=== PATIENT | male | born 1965 | race Caucasian/White ===

== ENCOUNTER 2016-04-09 18:17 | Emergency (ER) | payer OTHER ==
--- NOTE | 2016-04-09 20:53 | DIAGNOSTIC IMAGING REPORT ---
PROCEDURE: CTA THORAX WITH CONTRAST INDICATION: Shortness of breath with bilateral lower extremity swelling, initial encounter TECHNIQUE: 88 ml of Isovue 370 was injected intravenously and axial images were obtained of the entire thorax with 3D sagittal and coronal MIP reconstructions. COMPARISON: Chest x-ray 04/09/2016 FINDINGS: Limited opacification of the pulmonary arteries but no evidence of pulmonary emboli. Faint ground-glass appearance of the lungs. Minor right basilar atelectasis. No adenopathy or effusion. Normal thoracic aorta without dissection or aneurysm. Borderline cardiomegaly. Mild to moderate degenerative changes of the spine. Visualized upper abdomen is unremarkable. IMPRESSION: 1. No evidence of central pulmonary emboli but cannot completely exclude tiny peripheral emboli 2. Ground-glass appearance of the lungs suspicious for CHF. Correlate with BMP 3. Results discussed with Dr. Morgan
--- NOTE | 2016-04-09 20:54 | DIAGNOSTIC IMAGING REPORT ---
PROCEDURE: XR CHEST 1 VIEW INDICATION: SHORTNESS OF BREATH, initial encounter TECHNIQUE: Portable AP view 07:33 p.m. COMPARISON: None. FINDINGS: Lungs are clear. Borderline cardiomegaly. Mediastinum and pulmonary vessels are normal. Thorax is normal. IMPRESSION: 1. Borderline cardiomegaly
--- NOTE | 2016-04-09 23:47 | ED CLINICAL REPORT ---
Clinical Report - Physicians/Mid Levels [facility] [address] [place] [address] 04/09/2016 18:20 Patient: YVES MEEK Time Seen: 18:32. Arrived- By private vehicle. HISTORY OF PRESENT ILLNESS Chief Complaint: CHEST PAIN. SHORTNESS OF BREATH. It is described as "pain" and it is described as located in the left chest area. (L leg redness 2/4 following on the job injury [facility] visit - 04/04 Rx Keflex Rx for celluliitis LLL At 0300 today SOB, lungs felt full, L chest pain lasting several hours.). Is still present. It was gradual in onset. Onset during rest. At its maximum, severity described as 6 / 10. When seen in the E.D., it was almost gone and severity described as 3 / 10. No nausea. He has had difficulty breathing. Similar symptoms previously: None. REVIEW OF SYSTEMS No fever, fever, sore throat, abdominal pain or diarrhea. No nausea or difficulty with urination. He has had mild chills, pedal edema, calf pain and pain involving the left leg and chest pain. He has had a cough, difficulty breathing and skin rash located on the left leg. He has had a moderate cough productive of sputum. All systems otherwise negative, except as recorded above. PAST HISTORY Dr Lanette TOSCANO Ops: Cervical fusion, L wrist ORIF, L ear, Hosp: None Illness:. Risk factors for heart disease- smoking and hypertension; for DVT/pulmonary embolism- obesity. Denies the following risk factors for heart disease - diabetes, elevated cholesterol and family history of heart disease. Denies the following risk factors for DVT/PE - history of DVT and pulmonary embolism, recent surgery, recent [place] and congestive heart failure. SOCIAL HISTORY Current every day heavy tobacco smoker- 1 pack per day. ADDITIONAL NOTES The nursing notes have been reviewed. PHYSICAL EXAM Appearance: Alert. Patient in mild distress. Eyes: Eyes normal inspection. ENT: Pharynx normal. Neck: No JVD. CVS: Normal heart rate and rhythm. Heart sounds normal. Respiratory: No respiratory distress. Prolonged expirations. Decreased air movement. Moderate bilateral wheezes posteriorly. No retractions or accessory muscle use. Abdomen: Obese. Skin: Skin warm and dry. Normal skin color. No rash. Extremities: (LLE tenderness redness, minimal swelling). Neuro: Oriented X 3. LABS, X-RAYS, AND EKG EKG: No acute process. No acute ischemia. Rate: 85. Poor R wave progression. Normal ST and T waves. Chest X-ray: Medium-sized infiltrate in the left lower lobe. Laboratory Tests: CBC w Diff: (CARISSA: 04/09/2016 18:35) ( MsgRcvd 04/09/2016 19:03) Final results Test Result Flag Units (Reference) WHITE BLOOD COUNT 11.8 H K/uL (4.5-11.5) RED BLOOD COUNT 4.31 L M/uL (4.50-5.90) HEMOGLOBIN 13.9 gm/dL (13.5-17.5) HEMATOCRIT 41.7 % (41.0-53.0) MEAN CELL VOLUME 97 fL (80-100) MEAN CORPUSCULAR HGB 32 pg (26-34) MEAN CORPUSCULAR HGB CONC 33 g/dL (31-37) RED CELL DISTRIBUTION WIDTH 13.9 % (11.6-14.8) PLATELET COUNT 289 K/uL (150-400) NEUTROPHIL % 71.9 % (50-75) LYMPH % 16.0 L % (25-40) MONO % 6.6 % (3-14) EOSINOPHIL % 5.5 H % (0-4) BASOPHIL % 0 % (0-2) [id number]: (CARISSA: 04/09/2016 18:35) ( [facility] Final results Test Result Flag Units (Reference) D-DIMER QUANTITATIVE 0.66 H ug/mLFEU (0.27-0.52) The primary value of this quantitative assay relates toits negative predictive value (i.e. exclusion) of pulmonaryembolism/deep vein thrombosis/DIC.Elevated levels of d-dimer may also occur with:, age, cancer, inflammation, liver disease,post-op, infection, hematoma, coronary disease, peripheralarteriopathy, bleeding disorders and thrombolytic treatment.Results should be correlated with other clinical andradiological data.Testing Methodology: Latex Immunoassay Lactate, Serum: (CARISSA: 04/09/2016 20:00) ( MsgRcvd 04/09/2016 20:37) Final results Test Result Flag Units (Reference) LACTIC ACID 0.7 mmol/L (0.4-2.0) [id number]: (CARISSA: 04/09/2016 18:35) ( MsgRcvd 04/09/2016 20:21) Final results Test Result Flag Units (Reference) PROCALCITONIN <0.5 ng/mL (0-0.5) PCT Concentration: Interpretation : Risk/option for action PCT <=0.5 ng/mL : Systemic : Low risk forinfection(sepsis): progression to severeis not likely. : systemic infection.Local bacterial : CAUTION-PCT levelsinfection is : below 0.5 ng/mL do notpossible. : exclude an infection,because localizedinfections (withoutsystemic signs) may beassociated with suchlow levels. If PCT ismeasured very earlyafter a bacterialchallenge (usually <6hours), these valuesmay still be low. Inthis case PCT shouldbe re-assessed 6-24hours later. PCT >0.5 and : Systemic infection: Moderate risk for<= 2 ng/mL : (sepsis) is : progression to severepossible, but : systemic infection.other conditions : The patient should beare known to : closely monitoredelevate PCT. : both clinically andby re-assessing PCTwithin 6-24 hours. PCT > 2 ng/mL : Systemic infection: High risk for(sepsis) is likely: progression to severeunless other : systemic infection.causes are known. : PCT >= 10 ng/mL : Important systemic: High likelihood ofinflammatory : severe sepsis orresponse, almost : septic shock.exclusively due to:severe bacterial :sepsis or septic :shock. : BNP: (CARISSA: 04/09/2016 18:35) ( [facility] 04/09/2016 19:27) Final results Test Result Flag Units (Reference) B-TYPE NATRIURETIC PEPTIDE 15.7 pg/ml (5-100) CHEM 13 PANEL: (CARISSA: 04/09/2016 18:35) ( [facility] 04/09/2016 19:16) Final results Test Result Flag Units (Reference) GLUCOSE 134 H mg/dL (70-110) BUN 20 H mg/dL (7-18) CREATININE 1.0 mg/dL (0.6-1.3) Estimated GFR >60 mL/min Estimated GFR- >60 mL/min Note: Persistent reduction over 3 months in eGFR<60 mL/min/1.73 m2 defines CKD. Patients with eGFR values>=60 mL/min/1.73 m2 may also have CKD if evidence ofpersistent proteinuria. Additional information may be foundat www.kidney.org. SODIUM 142 mmol/L (136-145) POTASSIUM 4.3 mmol/L (3.5-5.1) CHLORIDE 105 mmol/L (98-107) CARBON DIOXIDE 33 H mmol/L (21-32) CALCIUM 8.2 L mg/dL (8.5-10.1) TOTAL PROTEIN 7.4 g/dL (6.4-8.2) ALBUMIN 3.2 L g/dL (3.3-5.0) BILIRUBIN, TOTAL 0.2 mg/dL (0.0-1.0) ALKALINE PHOSPHATASE 92 U/L (46-116) AST (SGOT) 17 U/L (15-37) ALT (SGPT) 29 U/L (12-78) CPK 132 U/L (24-260) MAGNESIUM 2.1 mg/dL (1.8-2.4) TROPONIN I <0.05 ng/mL (0.00-1.5) TROPONIN REFERENCE RANGE:<0.1 NEGATIVE0.1-1.5 INDETERMINANT>1.5 POSITIVE ABG: (CARISSA: 04/09/2016 20:45) ( MsgRcvd 04/09/2016 21:34) Final results Test Result Flag Units (Reference) FIO2 0.28 L % (20-101) ABG MODE OF DELIVERY NC MODIFIED PARKER TEST POSITIVE? NO LITERS PER MIN. 2 L/MIN (0-20) ARTERIAL BLOOD GAS SITE RR ARTERIAL BLOOD GAS pH 7.29 L (7.35-7.45) ABG PCO2 73.8 *H mmHg (35-45) ABG PO2 58.1 L mmHg (80.0-100.0) ABG BASE EXCESS 7.0 H mmol/L (-6.0--6.0) ABG HCO3 35.1 *H mmol/L (20.0-26.0) ABG TCO2 37.4 *H mmol/L (24.0-30.0) ABG [id number] 61.4 H mmHg (7.0-14.0) *NOTE: Normal rangeis based on aFIO2 of 21% ABG SAT O2 90.0 L % (95.1-100.0) ABG TOTAL HEMOGLOBIN 14.3 g/dL (14.0-18.0) ABG O2 HEMOGLOBIN 83.5 *L % (95.0-100.0) ABG CARBOXYHEMOGLOBIN 7.1 H % (0.5-1.5) ABG METHEMOGLOBIN 0.1 L % (0.4-1.5) ABG RHEMOGLOBIN 9.3 % COMMENTS 2LNC Rapid Influenza Screen: (CARISSA: 04/09/2016 23:30) ( MsgRcvd 04/09/2016 23:58) Final results SPECIMEN DESCRIPTION: ... Test Result Flag Units (Reference) RAPID INFLUENZA SCREEN DATE: 04/09/16 INFLUENZA A: NEGATIVE SCREEN FOR INFLUENZA A INFLUENZA B: NEGATIVE SCREEN FOR INFLUENZA B . PROGRESS AND PROCEDURES Course of Care: 20:45 04/09/16. Sleeping and snorring 21:44 04/09/16. Respiratory acidosis on ABG. No ICU beds here. No PE, Pneumonia, or CHF. Bedside hand off to Dr Rushing because of change of shift/R MD Eddie 22:59 04/09/16. Called Prov for ICU bed, none available. 23:45 04/09/16. Spoke w/ Dr. Ta at [facility], requested testing for flu and accepted pt. Disposition: Benefits, risks and alternatives to transfer explained to patient and spouse. Transferred to [facility]. CLINICAL IMPRESSION Acute exacerbation of COPD. Hypoxia. HYPOXEMIA WITH HYPOVENTILATION BRONCHOSPASM LLL CELLULITIS. (Electronically signed by Daniel Rushing Dr. 04/10/2016 0:37)
--- NOTE | 2016-04-09 23:47 | ED ORDER SUMMARY ---
..... Patient: YVES MEEK OrderSheet [facility] VisitID: [id number] [address] [place] [address] 51y, M Registration Date/Time: 04/09/2016 ORDER SHEET Weight: 129.2 kg (stated) Allergies: Clarithromycin GENERAL ORDERS: Chest 1V Urgent (18:51 04/09/2016 Lexis LOCKHART) (Ack 19:06 Corina) (19:37 RFay) Supervisor [employer] (Continuous) (18:52 04/09/2016 Lexis LOCKHART) (18:59 ASchmuck) Cardiac Panel Stat (18:52 04/09/2016 Lexis LOCKHART) (Ack 19:06 Corina) (19:25 ASchmuck) BNP Urgent (18:52 04/09/2016 Lexis LOCKHART) (Ack 19:06 Corina) (19:25 ASchmuck) D-Dimer Urgent (18:52 04/09/2016 Lexis LOCKHART) (Ack 19:06 Corina) (19:25 ASchmuck) Oxygen (2 L/min) (NC) (18:52 04/09/2016 Lexis LOCKHART) (18:59 ASchmuck) Pulse oximeter (18:52 04/09/2016 Lexis LOCKHART) (18:59 ASchmuck) EKG - ER Stat (18:52 04/09/2016 Lexis LOCKHART) (18:59 ASchmuck) Peak Flow (pre & post) Stat (18:58 04/09/2016 Lexis LOCKHART) (Ack 19:06 Corina) (19:25 ASchmuck) Chest 1V Urgent (19:34 04/09/2016 Lexis LOCKHART) (Cancelled: Duplicate Order19:39 ALawrence ER Tech1) Blood Culture (Yes) (KEFLEX) Urgent (19:51 04/09/2016 Lexis LOCKHART) (Ack 19:54 ALawrence ER Tech1) (20:07 ALawrence ER Tech1) CTA Thorax w Cont (No) (SEE CHART) Urgent (19:52 04/09/2016 Lexis LOCKHART) (Ack 19:54 ALawrence ER Tech1) (20:52 ASchmuck) Lactate, Serum Urgent (19:52 04/09/2016 Lexis LOCKHART) (Ack 19:54 ALawrence ER Tech1) (20:07 ALawrence ER Tech1) PCT (Procalcitonin) Urgent (19:52 04/09/2016 Lexis LOCKHART) (Ack 19:54 ALawrence ER Tech1) (20:07 ALawrence ER Tech1) ABG (G) Urgent (20:45 04/09/2016 Lexis LOCKHART) (Ack 20:52 ALawrence ER Tech1) (22:20 ALawrence ER Tech1) BNP Urgent (20:53 04/09/2016 Lexis LOCKHART) (20:58 Lexis LOCKHART) (Cancelled: Duplicate Order20:58 Lexis LOCKHART) Rapid Influenza Screen (Nasal Pharyngeal) (...) Urgent (23:34 04/09/2016 Sue Sue) (23:54 EHassan R.N.) MEDICATION ORDERS: Aspirin PO 325 mg (NOW) (18:53 04/09/2016 Lexis LOCKHART) (Ack 19:01 ASchmuck) (19:25 ASchmuck) Lovenox Subcut 120 mg (NOW) (18:53 04/09/2016 Lexis LOCKHART) (Ack 19:01 ASchm) (19:25 ASchmuck) Albuterol Neb Tx 5 mg (NOW, HHN) (18:57 04/09/2016 Lexis LOCKHART) (20:51 ASchmuck) DuoNeb Neb Tx 1 unit dose (NOW) (00:37 04/10/2016 Sue Sue) (0:57 EHassan R.N.) IV FLUIDS: IV Saline Lock (18:52 04/09/2016 Lexis LOCKHART) (18:59 ASchmuck) Solu-MEDROL IV 125 mg (NOW) (18:57 04/09/2016 Lexis LOCKHART) (Ack 19:01 ASchm) (19:25 ASchmuck) Levofloxacin IV 500 mg/100mL (NOW) (23:48 04/09/2016 Sue Sue) (0:03 EHassan R.N.) ORDER SHEET NOTES: [Electronically signed by Daniel Rushing Dr. (00:37 04/10/2016)] [Electronically signed by Rebecca Hernandez R.N. (00:57 04/10/2016)] [Electronically locked/signed by Rebecca Hernandez R.N. (00:57 04/10/2016)]
--- NOTE | 2016-04-09 23:47 | ED ORDER SUMMARY ---
..... 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) (18:52 04/09/2016 Lexis LOCKHART) (18:59 ASchmuck) Cardiac Panel Stat (18:52 04/09/2016 Lexis LOCKHART) (Ack 19:06 Corina) (19:25 ASchmuck) BNP Urgent (18:52 04/09/2016 Lexis LOCKHART) (Ack 19:06 Corina) (19:25 ASchmuck) D-Dimer Urgent (18:52 04/09/2016 Lexis LOCKHART) (Ack 19:06 Corina) (19:25 ASchmuck) Oxygen (2 L/min) (NC) (18:52 04/09/2016 Lexis LOCKHART) (18:59 ASchmuck) Pulse oximeter (18:52 04/09/2016 Lexis LOCKHART) (18:59 ASchmuck) EKG - ER Stat (18:52 04/09/2016 Lexis LOCKHART) (18:59 ASchmuck) Peak Flow (pre & post) Stat (18:58 04/09/2016 Lexis LOCKHART) (Ack 19:06 Corina) (19:25 ASchmuck) Chest 1V Urgent (19:34 04/09/2016 Lexis LOCKHART) (Cancelled: Duplicate Order19:39 ALawrence ER Tech1) Blood Culture (Yes) (KEFLEX) Urgent (19:51 04/09/2016 Lexis LOCKHART) (Ack 19:54 ALawrence ER Tech1) (20:07 ALawrence ER Tech1) CTA Thorax w Cont (No) (SEE CHART) Urgent (19:52 04/09/2016 Lexis LOCKHART) (Ack 19:54 ALawrence ER Tech1) (20:52 ASchmuck) Lactate, Serum Urgent (19:52 04/09/2016 Lexis LOCKHART) (Ack 19:54 ALawrence ER Tech1) (20:07 ALawrence ER Tech1) PCT (Procalcitonin) Urgent (19:52 04/09/2016 Lexis LOCKHART) (Ack 19:54 ALawrence ER Tech1) (20:07 ALawrence ER Tech1) ABG (G) Urgent (20:45 04/09/2016 Lexis LOCKHART) (Ack 20:52 ALawrence ER Tech1) (22:20 ALawrence ER Tech1) BNP Urgent (20:53 04/09/2016 Lexis LOCKHART) (20:58 Lexis LOCKHART) (Cancelled: Duplicate Order20:58 Lexis LOCKHART) Rapid Influenza Screen (Nasal Pharyngeal) (...) Urgent (23:34 04/09/2016 Sue Sue) (23:54 EHassan R.N.) MEDICATION ORDERS: Aspirin PO 325 mg (NOW) (18:53 04/09/2016 Lexis LOCKHART) (Ack 19:01 ASchmuck) (19:25 ASchmuck) Lovenox Subcut 120 mg (NOW) (18:53 04/09/2016 Lexis LOCKHART) (Ack 19:01 ASchm) (19:25 ASchmuck) Albuterol Neb Tx 5 mg (NOW, HHN) (18:57 04/09/2016 Lexis LOCKHART) (20:51 ASchmuck) DuoNeb Neb Tx 1 unit dose (NOW) (00:37 04/10/2016 Sue Sue) (0:57 EHassan R.N.) IV FLUIDS: IV Saline Lock (18:52 04/09/2016 Lexis LOCKHART) (18:59 ASchmuck) Solu-MEDROL IV 125 mg (NOW) (18:57 04/09/2016 Lexis LOCKHART) (Ack 19:01 ASchm) (19:25 ASchmuck) Levofloxacin IV 500 mg/100mL (NOW) (23:48 04/09/2016 Sue Sue) (0:03 EHassan R.N.) ORDER SHEET NOTES: [Electronically signed by Daniel Rushing Dr. (00:37 04/10/2016)] [Electronically signed by Rebecca Hernandez R.N. (00:57 04/10/2016)] [Electronically locked/signed by Rebecca Hernandez R.N. (00:57 04/10/2016)]
--- NOTE | 2016-04-09 23:47 | ED NURSING NOTES ---
Clinical Report - Nurses [facility] [place] [address] 04/09/2016 18:20 Patient: YVES MEEK TRIAGE Triage time 18:20. Acuity: LEVEL 3. Chief Complaint: SHORTNESS OF BREATH and COUGH and CHEST PAIN. Alert. No acute distress. SEPSIS SCREEN: Sepsis Screen: negative. Negative (no infection suspected/documented). ALEENA COMA SCORE: [place] Coma Scale: 15- eyes open spontaneously (4); best verbal response- oriented x 4 (5); best motor response- obeys commands (6). --18:33 Batsheva Buchanan R.N. 18:25 04/09/16. BP: 139/62. HR: 85. RR: 20. O2 saturation: 83%. Temp: 98.1 F. Pain level now 10. --18:33 Batsheva Buchanan R.N. Weight: 129.2 kg stated. Height/Length: 66 inches Per Patient. BMI: 46. --18:27 Batsheva Buchanan R.N. Medications Cephalexin Oral 500 mg, 4x a day. --18:31 Batsheva Buchanan R.N. Naproxen Oral 500 mg, 2x a day. --18:31 Batsheva Buchanan R.N. Decongestant Oral. --18:31 Batsheva Buchanan R.N. Allergies Clarithromycin. (Gi bleed) --18:31 Batsheva Buchanan R.N. History Arrived by EMS. Historian: patient. Accompanied by family. Primary physician (Vance Gama). This started last night. Onset. (0300 last night). Treatment [employer]: None. (Pt seen at [facility] today and was advised to go to the ED via EMS). See EMS report. Pre-hospital 12-lead EKG. PAST MEDICAL HX: Immunizations: status is unknown. SOCIAL HX: Heavy tobacco smoker (cigarette)- 1 pack per day. No alcohol use or drug use. No infectious disease exposure. ABUSE ASSESSMENT: Abuse assessment: The patient was asked "Do you feel safe in your home?" and "Has anyone hurt you or threatened to hurt you?". No report of abuse. SELF HARM ASSESSMENT: A self harm assessment was performed. The patient answered "no" to the question "Do you have thoughts of harming or killing yourself?" and "Have you recently had thoughts about harming or killing others?". NUTRITIONAL RISK ASSESSMENT: The nutritional risk assessment revealed no deficiencies. FUNCTIONAL ASSESSMENT: Functional assessment: no impairments noted. LEARNING NEEDS ASSESSMENT: The learning needs assessment revealed no barriers. --18:33 Batsheva Buchanan R.N. PROBLEMS: Cellulitis. GI Bleeding. --18:33 Batsheva Buchanan R.N. ADDITIONAL SURGERIES: Back Surgery. Knee Surgery. Neck Surgery. Wrist. --18:33 Batsheva Buchanan R.N. Interventions ID band on patient. Transported via stretcher. --18:33 Batsheva Buchanan R.N. 18:30 04/09/2016 Site #1 started prior to arrival by EMS via IV in the right hand with an 20g angiocath. --18:30 Batsheva Buchanan R.N. PHYSICAL ASSESSMENT To room via stretcher. GENERAL / NEURO / PSYCH: Alert. Appears in no acute distress. HEENT: Mucous membranes are pink. RESPIRATORY: No respiratory distress. Respirations not labored. CVS: Capillary refill less than 2 seconds. SKIN: Skin is warm and dry. --18:34 Batsheva Buchanan R.N. NURSING PROGRESS NOTES 18:20. Oxygen administered by nasal cannula at 3 liters. screed person, pulse oximeter and NIBP monitor placed on patient; combination machine tool setter- Lead II; monitor alarms on. Patient gowned. Head of bed elevated. Two patient identifiers checked. Call light placed in reach. Side rails up x 2. Bed placed in lowest position. Brakes of bed on. Patient ready for evaluation- chart flagged. --18:35 Batsheva Buchanan R.N. EKG time: (1819). EKG was ordered, performed by a tech and shown to the ED physician. --18:35 Batsheva Buchanan R.N. Patient ID band checked for patient name, birthdate and medical record number: patient confirmed. Blood samples drawn from the right hand peripheral IV site by nurse per protocol ; labeled in presence of the patient and sent to lab: rainbow set. Initial blood discarded and additional blood sent to lab. Line flushed with 10 mL normal saline post blood draw (accessed by Liborio Tovar RN). --18:36 Batsheva Buchanan R.N. EKG time: (1830). EKG was performed by a tech and shown to the ED physician. --18:47 Andrew Villagomez Care transferred and report received (from Batsheva Celis,RN). --19:07 Mirta Patel ( Respiratory therapist at bedside.). --19:08 Danae Atnunez 19:20 04/09/2016 Aspirin PO Tablets 325 mg given. Allergies verified and confirmed 5 rights. --19:25 Mirta Patel 19:04/09/2016 SOLU-MEDROL (MethylPREDNISolone Sodium Succ) IVP 125 mg given over 2 minute(s) via site #1. Allergies verified and confirmed 5 rights. IV patency established. IV site checked: no pain, redness, or swelling. IV flushed thoroughly pre- and post-medication administration. IVP given by RN. --19: Mirta Patel 04/09/2016 Lovenox (Enoxaparin Sodium) Subcutaneous 120 mg given. Given in the right upper arm. Allergies verified and confirmed 5 rights. --19:25 Mirta Patel :04/09/16. BP: 147/84. HR: 86. RR: 24. O2 saturation: 86% on nasal cannula at 4 liters/minute. Pain level now: 09/05. --19:26 Mirta Patel :04/09/2016 Albuterol Neb TX Nebulizer 1 unit dose given. Given by the respiratory therapist. --20:51 Mirta Patel 04/09/16. ( Pt assisted to BR by factory focus technician). --19:26 Mirta Patel 19:04/09/16. BP: 142/75. HR: 86. RR: 22. O2 saturation: 89% on nasal cannula at 4 liters/minute. Pain level now: 09/05. --19:47 Mirta Patel 20:03 04/09/2016 Site #2 started via IV in the left antecubital space with an 18g angiocath, with aseptic technique and good blood return; one attempt. Blood drawn: cultures x1. Labeled in the presence of the patient and sent to the lab. Saline lock flushed with 10 mL saline. --20:13 Mirta Patel 20:14 04/09/16. Patient transported to radiology by stretcher with tech. (20:14 Apr 09 2016). ( Pillows provided to patient for comfort.). --20:14 Mirta Patel 21:14 04/09/16. ( Patient desaturates while sleeping to mid-60's or 70's. reports that patient stops breathing while sleeping at home. ERMD notified.). --21:14 Mirta Patel 21:14 04/09/16. BP: 152/77. HR: 86. RR: 18. O2 saturation: 86% on nasal cannula at 4 liters/minute. --21:15 Mirta Patel 22:10 04/09/16. ( Pt ambulated to with .). --22:10 Mirta Patel 23:29 04/09/16. BP: 146/89. HR: 85. RR: 22. O2 saturation: 91%. O2 started via Venti mask at 4 liters/minute. Temp: 98 F (oral). Pain level now: 0/10. --23:38 Rebecca Hernandez, R.N. Cardiac rhythm: normal sinus rhythm. Oxygen administered by venturi mask. Monitoring of patient in place. Reassurance given. Reassessment after oxygen administered. He is calm and has had no adverse reaction. Overall patient status is the same- he states feels the same. ( Pt stating wanting to "go home, due to not wanting to transfer to [facility]" Dr. Rushing at the bedside, education done on the importance of staying at hospital.). RESPIRATORY: Decreased breath sounds posteriorly and diffusely over both lungs; decreased breath sounds in the right lung base posteriorly and mid-lung posteriorly; decreased breath sounds in the left lung base posteriorly and mid-lung posteriorly and diffusely over both lungs. CVS: Normal sinus rhythm noted. SKIN: Skin is warm. Skin color within normal limits. Patient identifiers checked. Call light placed in reach. Side rails up x 2. Bed placed in lowest position. Brakes of bed on. Brakes of chair on. Patient waiting for admit bed. --23:38 Rebecca Hernandez R.N. 00:03 04/10/2016 Started 500 mg of Levofloxacin IVPB in bag #1 100 mL; at 100 mL/hr over 1 hour(s) via site #1 via IV pump. Allergies verified and confirmed 5 rights. IV patency established. IV site checked: no pain, redness, or swelling. IV flushed thoroughly pre- and post-medication administration. --00:03 Rebecca Hernandez R.N. ( LLE noted to be red/edema +1, palpable pulses +1, IV ABX infusing). --00:10 Rebecca Hernandez R.N. Care transferred and report given (RAMESH Jernigan at [facility]). --00:56 Rebecca Hernandez R.N. 00:42 04/10/2016 Levofloxacin IVPB Continued: upon transfer at the rate of 100 mL/hr. 50 mL remaining bag #1. IV patency established. IV site checked: no pain, redness, or swelling. IV flushed thoroughly. --00:57 Rebecca Hernandez R.N. 00:47 04/10/2016 Duoneb (Ipratropium-Albuterol) Neb TX Nebulizer 1 unit dose given. Given by the nurse. Allergies verified and confirmed 5 rights. --00:57 Rebecca Hernandez R.N. DISPOSITION / DISCHARGE 00:26 04/10/2016 Site #1 reassessed; patent, infusing well and no signs of infection. Line flushed with saline. Converted to saline lock. --00:51 Rebecca Hernandez R.N. 00:47 04/10/2016 Site #2 reassessed; patent and infusing well. Line flushed with saline. Flushed with 10 mL saline. --00:52 Rebecca Hernandez R.N. 00:51 04/10/2016 Site #1. (Pt before leaving states "IV feels sore"). --00:51 Rebecca Hernandez R.N. Cardiac rhythm: normal sinus rhythm. Departure time: 0012 AM. Condition at departure: improved and stable. The goals identified in the patient's plan of care were met. Transferred to [facility]. Summary of care provided to transport team, patient and transfer facility. Transported via stretcher by transport team with monitor, IV and O2. Report was given to a nurse. Report included patient's care, treatment, medications, reviewed medication reconcilliation, and condition (including any recent changes or anticipated changes). All questions were answered. Report was acknowledged and care was transferred. (RAMESH Rojas). ( Pt transferred to [facility] via EMS/ ALS team, report given to RAMESH Nayak- (transport specialist), VSS, pt given a neb due to complaining of SOB and wheezing, O2 sats at 92 RA). FALL RISK ASSESSMENT: Fall risk assessment completed. No fall risk identified. --00:55 Rebecca Hernandez R.N. 00:40 04/10/16. BP: 150/92 (regular adult cuff) taken on the right arm, manually, while sitting. HR: 88. RR: 20. O2 saturation: 90% on room air. Temp: 98.2 F (oral). Pain level now: 0/10. --00:55 Rebecca Hernandez R.N. Locked/Released at 04/10/2016 0:57 by Rebecca Hernandez R.N.
--- NOTE | 2016-04-09 23:47 | ED CLINICAL REPORT ---
Clinical Report - Physicians/Mid Levels [facility] [address] [place] [address] 04/09/2016 18:20 Patient: YVES MEEK Time Seen: 18:32. Arrived- By private vehicle. HISTORY OF PRESENT ILLNESS Chief Complaint: CHEST PAIN. SHORTNESS OF BREATH. It is described as "pain" and it is described as located in the left chest area. (L leg redness 2/4 following on the job injury [facility] visit - 04/04 Rx Keflex Rx for celluliitis LLL At 0300 today SOB, lungs felt full, L chest pain lasting several hours.). Is still present. It was gradual in onset. Onset during rest. At its maximum, severity described as 6 / 10. When seen in the E.D., it was almost gone and severity described as 3 / 10. No nausea. He has had difficulty breathing. Similar symptoms previously: None. REVIEW OF SYSTEMS No fever, fever, sore throat, abdominal pain or diarrhea. No nausea or difficulty with urination. He has had mild chills, pedal edema, calf pain and pain involving the left leg and chest pain. He has had a cough, difficulty breathing and skin rash located on the left leg. He has had a moderate cough productive of sputum. All systems otherwise negative, except as recorded above. PAST HISTORY Dr Lanette TOSCANO Ops: Cervical fusion, L wrist ORIF, L ear, Hosp: None Illness:. Risk factors for heart disease- smoking and hypertension; for DVT/pulmonary embolism- obesity. Denies the following risk factors for heart disease - diabetes, elevated cholesterol and family history of heart disease. Denies the following risk factors for DVT/PE - history of DVT and pulmonary embolism, recent surgery, recent PR and congestive heart failure. SOCIAL HISTORY Current every day heavy tobacco smoker- 1 pack per day. ADDITIONAL NOTES The nursing notes have been reviewed. PHYSICAL EXAM Appearance: Alert. Patient in mild distress. Eyes: Eyes normal inspection. ENT: Pharynx normal. Neck: No JVD. CVS: Normal heart rate and rhythm. Heart sounds normal. Respiratory: No respiratory distress. Prolonged expirations. Decreased air movement. Moderate bilateral wheezes posteriorly. No retractions or accessory muscle use. Abdomen: Obese. Skin: Skin warm and dry. Normal skin color. No rash. Extremities: (LLE tenderness redness, minimal swelling). Neuro: Oriented X 3. LABS, X-RAYS, AND EKG EKG: No acute process. No acute ischemia. Rate: 85. Poor R wave progression. Normal ST and T waves. Chest X-ray: Medium-sized infiltrate in the left lower lobe. Laboratory Tests: CBC w Diff: (CARISSA: 04/09/2016 18:35) ( MsgRcvd 04/09/2016 19:03) Final results Test Result Flag Units (Reference) WHITE BLOOD COUNT 11.8 H K/uL (4.5-11.5) RED BLOOD COUNT 4.31 L M/uL (4.50-5.90) HEMOGLOBIN 13.9 gm/dL (13.5-17.5) HEMATOCRIT 41.7 % (41.0-53.0) MEAN CELL VOLUME 97 fL (80-100) MEAN CORPUSCULAR HGB 32 pg (26-34) MEAN CORPUSCULAR HGB CONC 33 g/dL (31-37) RED CELL DISTRIBUTION WIDTH 13.9 % (11.6-14.8) PLATELET COUNT 289 K/uL (150-400) NEUTROPHIL % 71.9 % (50-75) LYMPH % 16.0 L % (25-40) MONO % 6.6 % (3-14) EOSINOPHIL % 5.5 H % (0-4) BASOPHIL % 0 % (0-2) [id number]: (CARISSA: 04/09/2016 18:35) ( [facility] 04/09/2016 19:11) Final results Test Result Flag Units (Reference) D-DIMER QUANTITATIVE 0.66 H ug/mLFEU (0.27-0.52) The primary value of this quantitative assay relates toits negative predictive value (i.e. exclusion) of pulmonaryembolism/deep vein thrombosis/DIC.Elevated levels of d-dimer may also occur with:, age, cancer, inflammation, liver disease,post-op, infection, hematoma, coronary disease, peripheralarteriopathy, bleeding disorders and thrombolytic treatment.Results should be correlated with other clinical andradiological data.Testing Methodology: Latex Immunoassay Lactate, Serum: (CARISSA: 04/09/2016 20:00) ( MsgRcvd 04/09/2016 20:37) Final results Test Result Flag Units (Reference) LACTIC ACID 0.7 mmol/L (0.4-2.0) [id number]: (CARISSA: 04/09/2016 18:35) ( MsgRcvd 04/09/2016 20:21) Final results Test Result Flag Units (Reference) PROCALCITONIN <0.5 ng/mL (0-0.5) PCT Concentration: Interpretation : Risk/option for action PCT <=0.5 ng/mL : Systemic : Low risk forinfection(sepsis): progression to severeis not likely. : systemic infection.Local bacterial : CAUTION-PCT levelsinfection is : below 0.5 ng/mL do notpossible. : exclude an infection,because localizedinfections (withoutsystemic signs) may beassociated with suchlow levels. If PCT ismeasured very earlyafter a bacterialchallenge (usually <6hours), these valuesmay still be low. Inthis case PCT shouldbe re-assessed 6-24hours later. PCT >0.5 and : Systemic infection: Moderate risk for<= 2 ng/mL : (sepsis) is : progression to severepossible, but : systemic infection.other conditions : The patient should beare known to : closely monitoredelevate PCT. : both clinically andby re-assessing PCTwithin 6-24 hours. PCT > 2 ng/mL : Systemic infection: High risk for(sepsis) is likely: progression to severeunless other : systemic infection.causes are known. : PCT >= 10 ng/mL : Important systemic: High likelihood ofinflammatory : severe sepsis orresponse, almost : septic shock.exclusively due to:severe bacterial :sepsis or septic :shock. : BNP: (CARISSA: 04/09/2016 18:35) ( [facility] 04/09/2016 19:27) Final results Test Result Flag Units (Reference) B-TYPE NATRIURETIC PEPTIDE 15.7 pg/ml (5-100) CHEM 13 PANEL: (CARISSA: 04/09/2016 18:35) ( [facility] 04/09/2016 19:16) Final results Test Result Flag Units (Reference) GLUCOSE 134 H mg/dL (70-110) BUN 20 H mg/dL (7-18) CREATININE 1.0 mg/dL (0.6-1.3) Estimated GFR >60 mL/min Estimated GFR- >60 mL/min Note: Persistent reduction over 3 months in eGFR<60 mL/min/1.73 m2 defines CKD. Patients with eGFR values>=60 mL/min/1.73 m2 may also have CKD if evidence ofpersistent proteinuria. Additional information may be foundat www.[email or web address].org. SODIUM 142 mmol/L (136-145) POTASSIUM 4.3 mmol/L (3.5-5.1) CHLORIDE 105 mmol/L (98-107) CARBON DIOXIDE 33 H mmol/L (21-32) CALCIUM 8.2 L mg/dL (8.5-10.1) TOTAL PROTEIN 7.4 g/dL (6.4-8.2) ALBUMIN 3.2 L g/dL (3.3-5.0) BILIRUBIN, TOTAL 0.2 mg/dL (0.0-1.0) ALKALINE PHOSPHATASE 92 U/L (46-116) AST (SGOT) 17 U/L (15-37) ALT (SGPT) 29 U/L (12-78) CPK 132 U/L (24-260) MAGNESIUM 2.1 mg/dL (1.8-2.4) TROPONIN I <0.05 ng/mL (0.00-1.5) TROPONIN REFERENCE RANGE:<0.1 NEGATIVE0.1-1.5 INDETERMINANT>1.5 POSITIVE ABG: (CARISSA: 04/09/2016 20:45) ( MsgRcvd 04/09/2016 21:34) Final results Test Result Flag Units (Reference) FIO2 0.28 L % (20-101) ABG MODE OF DELIVERY NC MODIFIED PARKER TEST POSITIVE? NO LITERS PER MIN. 2 L/MIN (0-20) ARTERIAL BLOOD GAS SITE RR ARTERIAL BLOOD GAS pH 7.29 L (7.35-7.45) ABG PCO2 73.8 *H mmHg (35-45) ABG PO2 58.1 L mmHg (80.0-100.0) ABG BASE EXCESS 7.0 H mmol/L (-6.0--6.0) ABG HCO3 35.1 *H mmol/L (20.0-26.0) ABG TCO2 37.4 *H mmol/L (24.0-30.0) ABG SpXuK5n 61.4 H mmHg (7.0-14.0) *NOTE: Normal rangeis based on aFIO2 of 21% ABG SAT O2 90.0 L % (95.1-100.0) ABG TOTAL HEMOGLOBIN 14.3 g/dL (14.0-18.0) ABG O2 HEMOGLOBIN 83.5 *L % (95.0-100.0) ABG CARBOXYHEMOGLOBIN 7.1 H % (0.5-1.5) ABG METHEMOGLOBIN 0.1 L % (0.4-1.5) ABG RHEMOGLOBIN 9.3 % COMMENTS 2LNC Rapid Influenza Screen: (CARISSA: 04/09/2016 23:30) ( MsgRcvd 04/09/2016 23:58) Final results SPECIMEN DESCRIPTION: ... Test Result Flag Units (Reference) RAPID INFLUENZA SCREEN DATE: 04/09/16 INFLUENZA A: NEGATIVE SCREEN FOR INFLUENZA A INFLUENZA B: NEGATIVE SCREEN FOR INFLUENZA B . PROGRESS AND PROCEDURES Course of Care: 20:45 04/09/16. Sleeping and snorring 21:44 04/09/16. Respiratory acidosis on ABG. No ICU beds here. No PE, Pneumonia, or CHF. Bedside hand off to Dr Rushing because of change of shift/R MD Eddie 22:59 04/09/16. Called Prov for ICU bed, none available. 23:45 04/09/16. Spoke w/ Dr. Ta at [facility], requested testing for flu and accepted pt. Disposition: Benefits, risks and alternatives to transfer explained to patient and spouse. Transferred to [facility]. CLINICAL IMPRESSION Acute exacerbation of COPD. Hypoxia. HYPOXEMIA WITH HYPOVENTILATION BRONCHOSPASM LLL CELLULITIS. (Electronically signed by Daniel Rushing Dr. 04/10/2016 0:37)
--- NOTE | 2016-04-09 23:47 | ED NURSING NOTES ---
Clinical Report - Nurses [facility] [place] [address] 04/09/2016 18:20 Patient: YVES MEEK TRIAGE Triage time 18:20. Acuity: LEVEL 3. Chief Complaint: SHORTNESS OF BREATH and COUGH and CHEST PAIN. Alert. No acute distress. SEPSIS SCREEN: Sepsis Screen: negative. Negative (no infection suspected/documented). ALEENA COMA SCORE: [place] Coma Scale: 15- eyes open spontaneously (4); best verbal response- oriented x 4 (5); best motor response- obeys commands (6). --18:33 Batsheva Buchanan R.N. 18:25 04/09/16. BP: 139/62. HR: 85. RR: 20. O2 saturation: 83%. Temp: 98.1 F. Pain level now 10. --18:33 Batsheva Buchanan R.N. Weight: 129.2 kg stated. Height/Length: 66 inches Per Patient. BMI: 46. --18:27 Batsheva Buchanan R.N. Medications Cephalexin Oral 500 mg, 4x a day. --18:31 Batsheva Buchanan R.N. Naproxen Oral 500 mg, 2x a day. --18:31 Batsheva Buchanan R.N. Decongestant Oral. --18:31 Batsheva Buchanan R.N. Allergies Clarithromycin. (Gi bleed) --18:31 Batsheva Buchanan R.N. History Arrived by EMS. Historian: patient. Accompanied by family. Primary physician (Vance Gama). This started last night. Onset. (0300 last night). Treatment MACHINE COREMAKER: None. (Pt seen at [facility] today and was advised to go to the ED via EMS). See EMS report. Pre-hospital 12-lead EKG. PAST MEDICAL HX: Immunizations: status is unknown. SOCIAL HX: Heavy tobacco smoker (cigarette)- 1 pack per day. No alcohol use or drug use. No infectious disease exposure. ABUSE ASSESSMENT: Abuse assessment: The patient was asked "Do you feel safe in your home?" and "Has anyone hurt you or threatened to hurt you?". No report of abuse. SELF HARM ASSESSMENT: A self harm assessment was performed. The patient answered "no" to the question "Do you have thoughts of harming or killing yourself?" and "Have you recently had thoughts about harming or killing others?". NUTRITIONAL RISK ASSESSMENT: The nutritional risk assessment revealed no deficiencies. FUNCTIONAL ASSESSMENT: Functional assessment: no impairments noted. LEARNING NEEDS ASSESSMENT: The learning needs assessment revealed no barriers. --18:33 Batsheva Buchanan R.N. PROBLEMS: Cellulitis. GI Bleeding. --18:33 Batsheva Buchanan R.N. ADDITIONAL SURGERIES: Back Surgery. Knee Surgery. Neck Surgery. Wrist. --18:33 Batsheva Buchanan R.N. Interventions ID band on patient. Transported via stretcher. --18:33 Batsheva Buchanan R.N. 18:30 04/09/2016 Site #1 started prior to arrival by EMS via IV in the right hand with an 20g angiocath. --18:30 Batsheva Buchanan R.N. PHYSICAL ASSESSMENT To room via stretcher. GENERAL / NEURO / PSYCH: Alert. Appears in no acute distress. HEENT: Mucous membranes are pink. RESPIRATORY: No respiratory distress. Respirations not labored. CVS: Capillary refill less than 2 seconds. SKIN: Skin is warm and dry. --18:34 Batsheva Buchanan R.N. NURSING PROGRESS NOTES 18:20. Oxygen administered by nasal cannula at 3 liters. veneer sander, pulse oximeter and NIBP monitor placed on patient; program associate- Lead II; monitor alarms on. Patient gowned. Head of bed elevated. Two patient identifiers checked. Call light placed in reach. Side rails up x 2. Bed placed in lowest position. Brakes of bed on. Patient ready for evaluation- chart flagged. --18:35 Batsheva Buchanan R.N. EKG time: (1819). EKG was ordered, performed by a tech and shown to the ED physician. --18:35 Batsheva Buchanan R.N. Patient ID band checked for patient name, birthdate and medical record number: patient confirmed. Blood samples drawn from the right hand peripheral IV site by nurse per protocol ; labeled in presence of the patient and sent to lab: rainbow set. Initial blood discarded and additional blood sent to lab. Line flushed with 10 mL normal saline post blood draw (accessed by Liborio Tovar RN). --18:36 Batsheva Buchanan R.N. EKG time: (1830). EKG was performed by a tech and shown to the ED physician. --18:47 Andrew Villagomez Care transferred and report received (from Batsheva Celis,RN). --19:07 Mirta Patel ( Respiratory therapist at bedside.). --19:08 Danae Antunez 19:20 04/09/2016 Aspirin PO Tablets 325 mg given. Allergies verified and confirmed 5 rights. --19:25 Mirta Patel 19:04/09/2016 SOLU-MEDROL (MethylPREDNISolone Sodium Succ) IVP 125 mg given over 2 minute(s) via site #1. Allergies verified and confirmed 5 rights. IV patency established. IV site checked: no pain, redness, or swelling. IV flushed thoroughly pre- and post-medication administration. IVP given by RN. --19: Mirta Patel 04/09/2016 Lovenox (Enoxaparin Sodium) Subcutaneous 120 mg given. Given in the right upper arm. Allergies verified and confirmed 5 rights. --19:25 Mirta Patel :04/09/16. BP: 147/84. HR: 86. RR: 24. O2 saturation: 86% on nasal cannula at 4 liters/minute. Pain level now: 09/05. --19:26 Mirta Patel :04/09/2016 Albuterol Neb TX Nebulizer 1 unit dose given. Given by the respiratory therapist. --20:51 Mirta Patel 04/09/16. ( Pt assisted to BR by donor technician). --19:26 Mirta Patel 19:04/09/16. BP: 142/75. HR: 86. RR: 22. O2 saturation: 89% on nasal cannula at 4 liters/minute. Pain level now: 09/05. --19:47 Mirta Patel 20:03 04/09/2016 Site #2 started via IV in the left antecubital space with an 18g angiocath, with aseptic technique and good blood return; one attempt. Blood drawn: cultures x1. Labeled in the presence of the patient and sent to the lab. Saline lock flushed with 10 mL saline. --20:13 Mirta Patel 20:14 04/09/16. Patient transported to radiology by stretcher with tech. (20:14 Apr 09 2016). ( Pillows provided to patient for comfort.). --20:14 Mirta Patel 21:14 04/09/16. ( Patient desaturates while sleeping to mid-60's or 70's. reports that patient stops breathing while sleeping at home. ERMD notified.). --21:14 Mirta Patel 21:14 04/09/16. BP: 152/77. HR: 86. RR: 18. O2 saturation: 86% on nasal cannula at 4 liters/minute. --21:15 Mirta Patel 22:10 04/09/16. ( Pt ambulated to with .). --22:10 Mirta Patel 23:29 04/09/16. BP: 146/89. HR: 85. RR: 22. O2 saturation: 91%. O2 started via Venti mask at 4 liters/minute. Temp: 98 F (oral). Pain level now: 0/10. --23:38 Rebecca Hernandez, R.N. Cardiac rhythm: normal sinus rhythm. Oxygen administered by venturi mask. Monitoring of patient in place. Reassurance given. Reassessment after oxygen administered. He is calm and has had no adverse reaction. Overall patient status is the same- he states feels the same. ( Pt stating wanting to "go home, due to not wanting to transfer to [facility]" Dr. Rushing at the bedside, education done on the importance of staying at hospital.). RESPIRATORY: Decreased breath sounds posteriorly and diffusely over both lungs; decreased breath sounds in the right lung base posteriorly and mid-lung posteriorly; decreased breath sounds in the left lung base posteriorly and mid-lung posteriorly and diffusely over both lungs. CVS: Normal sinus rhythm noted. SKIN: Skin is warm. Skin color within normal limits. Patient identifiers checked. Call light placed in reach. Side rails up x 2. Bed placed in lowest position. Brakes of bed on. Brakes of chair on. Patient waiting for admit bed. --23:38 Rebecca Hernandez R.N. 00:03 04/10/2016 Started 500 mg of Levofloxacin IVPB in bag #1 100 mL; at 100 mL/hr over 1 hour(s) via site #1 via IV pump. Allergies verified and confirmed 5 rights. IV patency established. IV site checked: no pain, redness, or swelling. IV flushed thoroughly pre- and post-medication administration. --00:03 Rebecca Hernandez R.N. ( LLE noted to be red/edema +1, palpable pulses +1, IV ABX infusing). --00:10 Rebecca Hernandez R.N. Care transferred and report given (RAMESH Jernigan at [facility]). --00:56 Rebecca Hernandez R.N. 00:42 04/10/2016 Levofloxacin IVPB Continued: upon transfer at the rate of 100 mL/hr. 50 mL remaining bag #1. IV patency established. IV site checked: no pain, redness, or swelling. IV flushed thoroughly. --00:57 Rebecca Hernandez R.N. 00:47 04/10/2016 Duoneb (Ipratropium-Albuterol) Neb TX Nebulizer 1 unit dose given. Given by the nurse. Allergies verified and confirmed 5 rights. --00:57 Rebecca Hernandez R.N. DISPOSITION / DISCHARGE 00:26 04/10/2016 Site #1 reassessed; patent, infusing well and no signs of infection. Line flushed with saline. Converted to saline lock. --00:51 Rebecca Hernandez R.N. 00:47 04/10/2016 Site #2 reassessed; patent and infusing well. Line flushed with saline. Flushed with 10 mL saline. --00:52 Rebecca Hernandez R.N. 00:51 04/10/2016 Site #1. (Pt before leaving states "IV feels sore"). --00:51 Rebecca Hernandez R.N. Cardiac rhythm: normal sinus rhythm. Departure time: 0012 AM. Condition at departure: improved and stable. The goals identified in the patient's plan of care were met. Transferred to [facility]. Summary of care provided to transport team, patient and transfer facility. Transported via stretcher by transport team with monitor, IV and O2. Report was given to a nurse. Report included patient's care, treatment, medications, reviewed medication reconcilliation, and condition (including any recent changes or anticipated changes). All questions were answered. Report was acknowledged and care was transferred. (RAMESH Rojas). ( Pt transferred to [facility] via EMS/ ALS team, report given to RAMESH Nayak- (transportation manager), VSS, pt given a neb due to complaining of SOB and wheezing, O2 sats at 92 RA). FALL RISK ASSESSMENT: Fall risk assessment completed. No fall risk identified. --00:55 Rebecca Hernandez R.N. 00:40 04/10/16. BP: 150/92 (regular adult cuff) taken on the right arm, manually, while sitting. HR: 88. RR: 20. O2 saturation: 90% on room air. Temp: 98.2 F (oral). Pain level now: 0/10. --00:55 Rebecca Hernandez R.N. Locked/Released at 04/10/2016 0:57 by Rebecca Hernandez R.N.
--- NOTE | 2016-04-10 00:58 | ED MAR SUMMARY ---
..... Medication Administration Record [facility] [address] [place] [address] Patient: YVES MEEK Visit ID: [id number] 51y, M Weight: 129.2 kg Height/Length: 66 in BMI: 46 ALLERGIES: Clarithromycin Given 19:04/09/2016 Mirta Patel, Medication Administered: ASPIRIN [PO], Dose: 325 mg Tablets PO. Medication Ordered: Aspirin PO 325 mg (NOW). Given 19:04/09/2016 Mirta Patel, Medication Administered: SOLU-MEDROL [IVP] (METHYLPREDNISOLONE SODIUM SUCC), Dose: 125 mg IVP over 2 minute(s), Site: #1 right hand. Medication Ordered: Solu-MEDROL IV 125 mg (NOW). Given 19:04/09/2016 Mirta Patel, Medication Administered: LOVENOX [SUBCUTANEOUS] (ENOXAPARIN SODIUM), Dose: 120 mg Subcutaneous. Medication Ordered: Lovenox Subcut 120 mg (NOW). Given 19:04/09/2016 Mirta Patel, Medication Administered: ALBUTEROL [NEB TX], Dose: 1 unit dose Nebulizer Neb TX. Medication Ordered: Albuterol Neb Tx 5 mg (NOW, [facility]). Start 00:03 04/10/2016 Rebecca Hernandez RMaikolNMaikol, Continued Upon Transfer 00:42 04/10/2016 Rebecca Hernandez RMaikolNMaikol Medication Administered: LEVOFLOXACIN [IVPB], Dose: 500 mg IVPB over 1 hour(s), Rate: 100 mL/hr, Dispensed: 100 mL bag, Site: #1 right hand. Medication Ordered: Levofloxacin IV 500 mg/100mL (NOW). Given 00:47 04/10/2016 Rebecca Hernandez RMaikolNMaikol Medication Administered: DUONEB [NEB TX] (IPRATROPIUM-ALBUTEROL), Dose: 1 unit dose Nebulizer Neb TX. Medication Ordered: DuoNeb Neb Tx 1 unit dose (NOW).
--- NOTE | 2016-04-10 00:58 | ED DISCHARGE INSTRUCTIONS ---
Patient: YVES MEEK General Instructions [facility] VisitID: [id number] [address] [place] [address] 51y, M Registration Date/Time: 04/09/2016 Acute exacerbation of COPD. Hypoxia. HYPOXEMIA WITH HYPOVENTILATION BRONCHOSPASM LLL CELLULITIS. (Electronically signed by Daniel Rushing Dr. 04/10/2016 0:37)
--- NOTE | 2016-04-10 00:58 | ED DISCHARGE INSTRUCTIONS ---
Patient: YVES MEEK General Instructions [facility] VisitID: [id number] [address] [place] [address] 51y, M Registration Date/Time: 04/09/2016 Acute exacerbation of COPD. Hypoxia. HYPOXEMIA WITH HYPOVENTILATION BRONCHOSPASM LLL CELLULITIS. (Electronically signed by Daniel Rushing Dr. 04/10/2016 0:37)
--- NOTE | 2016-04-10 00:58 | ED MAR SUMMARY ---
..... Medication Administration Record [facility] [address] [place] [address] Patient: YVES MEEK Visit ID: [id number] 51y, M Weight: 129.2 kg Height/Length: 66 in BMI: 46 ALLERGIES: Clarithromycin Given 19:04/09/2016 Mirta Patel, Medication Administered: ASPIRIN [PO], Dose: 325 mg Tablets PO. Medication Ordered: Aspirin PO 325 mg (NOW). Given 19:04/09/2016 Mirta Patel, Medication Administered: SOLU-MEDROL [IVP] (METHYLPREDNISOLONE SODIUM SUCC), Dose: 125 mg IVP over 2 minute(s), Site: #1 right hand. Medication Ordered: Solu-MEDROL IV 125 mg (NOW). Given 19:04/09/2016 Mirta Patel, Medication Administered: LOVENOX [SUBCUTANEOUS] (ENOXAPARIN SODIUM), Dose: 120 mg Subcutaneous. Medication Ordered: Lovenox Subcut 120 mg (NOW). Given 19:04/09/2016 Mirta Patel, Medication Administered: ALBUTEROL [NEB TX], Dose: 1 unit dose Nebulizer Neb TX. Medication Ordered: Albuterol Neb Tx 5 mg (NOW, [facility]). Start 00:03 04/10/2016 Rebecca Hernandez RMaikolNMaikol, Continued Upon Transfer 00:42 04/10/2016 Rebecca Hernandez RMaioklNMaikol Medication Administered: LEVOFLOXACIN [IVPB], Dose: 500 mg IVPB over 1 hour(s), Rate: 100 mL/hr, Dispensed: 100 mL bag, Site: #1 right hand. Medication Ordered: Levofloxacin IV 500 mg/100mL (NOW). Given 00:47 04/10/2016 Rebecca Hernandez RMaikolNMaikol Medication Administered: DUONEB [NEB TX] (IPRATROPIUM-ALBUTEROL), Dose: 1 unit dose Nebulizer Neb TX. Medication Ordered: DuoNeb Neb Tx 1 unit dose (NOW).
--- NOTE | 2016-04-10 00:58 | ED MED RECONCILIATION SUMMARY ---
Patient: YVES MEEK Medication Reconciliation Report [facility] VisitID: [id number] [address] [place] [address] 51y, M Registration Date/Time: 04/09/2016 Weight: 129.2 kg Height/Length: 66 in. BMI: 46.0 ALLERGIES: Clarithromycin The patient's Home Medications are listed below: THE FOLLOWING MEDICATIONS NEED TO BE RECONCILED: Cephalexin Oral 500 mg, 4x a day Decongestant Oral Naproxen Oral 500 mg, 2x a day The source(s) of the original Home Medication information: Not obtained. The following Medications were given to the patient in the Emergency Department: Aspirin [PO] PO 325 mg, administered: 04/09/2016 7:20:00 PM Lovenox [Subcutaneous] Subcutaneous 120 mg, administered: 04/09/2016 7:25:00 PM SOLU-MEDROL [IVP] IVP 125 mg, administered: 04/09/2016 7:22:00 PM Albuterol [Neb Tx] Neb TX 1 unit dose, administered: 04/09/2016 7:26:00 PM Levofloxacin [IVPB] IVPB bolus 0, then 500 mg 100 mL/hr, administered: 04/10/2016 12:03:00 AM Duoneb [Neb Tx] Neb TX 1 unit dose, administered: 04/10/2016 12:47:00 AM The following Medications were prescribed to the patient: None.
--- NOTE | 2016-04-10 00:58 | ED MED RECONCILIATION SUMMARY ---
Patient: YVES MEEK Medication Reconciliation Report [facility] VisitID: [id number] [address] [place] [address] 51y, M Registration Date/Time: 04/09/2016 Weight: 129.2 kg Height/Length: 66 in. BMI: 46.0 ALLERGIES: Clarithromycin The patient's Home Medications are listed below: THE FOLLOWING MEDICATIONS NEED TO BE RECONCILED: Cephalexin Oral 500 mg, 4x a day Decongestant Oral Naproxen Oral 500 mg, 2x a day The source(s) of the original Home Medication information: Not obtained. The following Medications were given to the patient in the Emergency Department: Aspirin [PO] PO 325 mg, administered: 04/09/2016 7:20:00 PM Lovenox [Subcutaneous] Subcutaneous 120 mg, administered: 04/09/2016 7:25:00 PM SOLU-MEDROL [IVP] IVP 125 mg, administered: 04/09/2016 7:22:00 PM Albuterol [Neb Tx] Neb TX 1 unit dose, administered: 04/09/2016 7:26:00 PM Levofloxacin [IVPB] IVPB bolus 0, then 500 mg 100 mL/hr, administered: 04/10/2016 12:03:00 AM Duoneb [Neb Tx] Neb TX 1 unit dose, administered: 04/10/2016 12:47:00 AM The following Medications were prescribed to the patient: None.
== END 2016-04-10 00:56 | disposition short-term general hospital (02) ==
LOC: ED SRH 18:17
DX: J44.1 Chronic obstructive pulmonary disease with (acute) exacerbation (principal); J98.01 Acute bronchospasm; R09.02 Hypoxemia; L03.116 Cellulitis of left lower limb; R06.89 Other abnormalities of breathing; F17.210 Nicotine dependence, cigarettes, uncomplicated; Z88.1 Allergy status to other antibiotic agents
CPT/HCPCS: 90065; 90074; 90100; 90616; 91320; 91400; 91556; 92031; 92610; 92720; 93004; 95059

== ENCOUNTER 2016-07-04 09:55 | Inpatient (IN) | payer OTHER ==
[2016-07-04] VITALS (7 sets, daily range): BP systolic 123–175; BP diastolic 64–102
[~2016-07-04] VITALS: Ht 165.1 cm; Wt 142.6 kg
--- NOTE | 2016-07-04 11:07 | DIAGNOSTIC IMAGING REPORT ---
PROCEDURE: XR CHEST 1 VIEW INDICATION: SHORTNESS OF BREATH TECHNIQUE: Single view chest. 1023 hours COMPARISON: 04/09/2016 FINDINGS: Heart size at the upper limits of normal, stable. Mild prominence of the central pulmonary vasculature, stable. Eventration of the right hemidiaphragm, chronic. Minor retrocardiac strandy density. No other focal consolidation. No significant effusion or pneumothorax. Intact osseous structures. IMPRESSION: 1. Retrocardiac stranding, probably atelectatic changes. Small infiltrate not excluded. 2. Slight prominence of the central vessels, chronic.
--- NOTE | 2016-07-04 12:31 | DIAGNOSTIC IMAGING REPORT ---
PROCEDURE: ABDOMEN/PELVIS WITH CONTRAST CLINICAL INDICATION: ABDOMINAL PAIN TECHNIQUE: 125 ml of Isovue 300 were injected intravenously and axial images were obtained of the abdomen and pelvis with sagittal and coronal reformations. COMPARISON: None. FINDINGS: ABDOMEN: Minor patchy parenchymal alveolar opacity at the left lung base and slight atelectasis/scarring at the right lung base. Normal sized heart. No hiatal hernia. Tiny focal fat infiltration in the left lobe of the liver adjacent to the falciform ligament. Decompressed gallbladder. The liver, gallbladder, adrenal glands, kidneys, pancreas and spleen are otherwise normal. The abdominal aorta is normal in its course and caliber. Trace calcific atherosclerosis. There are no suspicious calcifications, retroperitoneal adenopathy or masses. The stomach, upper bowel loops, and mesentery are normal. Intact anterior abdominal wall. No free fluid or inflammation. PELVIS: Small external iliac chain lymph nodes are present bilaterally. Mild diverticular disease of the sigmoid colon without acute inflammation. The appendix and pelvic small bowel loops are normal. Mildly decreased amount of stool in the colon and rectum. The prostate gland, seminal vesicles, urinary bladder, and pelvic vessels are normal. No free fluid, or pelvic mass. Bilateral L4 and L5 pars defects without acute spondylolisthesis. Degenerative spurring in the lower thoracic spine. IMPRESSION: 1. Minor alveolitis in the posterior left lower lobe may be early primary pneumonia, sequelae of bronchitis or aspiration. 2. Mild atelectatic changes and/or scarring at the right lung base. 3. Mild sigmoid diverticulosis. 4. Findings called to the emergency room. All CT scans at this facility use dose modulation, iterative reconstruction, and/or weight-based dosing when appropriate to reduce radiation dose to as low as reasonably achievable.
--- NOTE | 2016-07-04 12:42 | ED NURSING NOTES ---
Clinical Report - Nurses [facility] [address] [place] [address] 07/04/2016 9:58 Patient: YVES MEEK TRIAGE Acuity: LEVEL 2. Chief Complaint: SHORTNESS OF BREATH. Alert. No acute distress. SEPSIS SCREEN: Sepsis Screen. Negative (no infection suspected/documented). --10:05 Debbie Rodriguez R.N. 09:58 07/04/16. BP: 155/76. HR: 95. RR: 35. O2 saturation: 77% on room air. Temp: 99.1 F (oral). Pain level now: 0/10. --10:05 Debbie Rodriguez R.N. Weight: 131.5 kg stated. Height/Length: 66 inches Per Patient. BMI: 46.8. --10:00 Debbie Rodriguez R.N. Medications Atrovent HFA Inhalation. --10:46 Debbie Rodriguez R.N. Carvedilol Oral (Tablet 3.125 mg). --10:47 Debbie Rodriguez R.N. Cefuroxime Axetil Oral 500 mg. --10:47 Debbie Rodriguez R.N. Furosemide Oral 20 mg. --10:50 Debbie Rodriguez R.N. Oxycodone-Acetaminophen Oral 5/325 mg. --10:50 Debbie Rodriguez R.N. Potassimin Oral. --10:51 Debbie Rodriguez R.N. PredniSONE Oral. --10:51 Debbie Rodriguez R.N. Medication/allergy information source: the patient. --10:05 Debbie Rodriguez R.N. Allergies Clarithromycin. (Gi bleed) --12:51 Debbie Rodriguez R.N. History Arrived by EMS. Historian: patient. Unaccompanied. This started just prior to arrival. PAST MEDICAL HX: Immunizations: up-to-date. SOCIAL HX: Smoker- current status unknown. No alcohol use or drug use. FALL RISK ASSESSMENT: Fall risk assessment completed. No fall risk identified. NUTRITIONAL RISK ASSESSMENT: The nutritional risk assessment revealed no deficiencies. LEARNING NEEDS ASSESSMENT: The learning needs assessment revealed no barriers. SKIN INTEGRITY ASSESSMENT: Skin integrity risk assessment completed. No skin integrity risk identified. --10:05 Debbie Rodriguez R.N. PROBLEMS: Hypoxia. COPD - Chronic Obstructive Pulmonary Disease. Cardiovascular Risk Factors. Cellulitis. GI Bleeding. --10:04 Debbie Rodriguez R.N. ADDITIONAL SURGERIES: Back Surgery. Knee Surgery. Neck Surgery. Wrist. --10:04 Debbie Rodriguez R.N. Assessment GENERAL / NEURO / PSYCH: Alert. Oriented X 4. Appears in no acute distress. Jayson Coma Scale: 15- eyes open spontaneously (4); best verbal response- oriented x 4 (5); best motor response- obeys commands (6). Patient appears calm and cooperative. RESPIRATORY: Respirations not labored. CVS: Capillary refill less than 2 seconds. GI / : Abdominal distention. Abdomen soft. SKIN: Mucous membranes are pink. Skin is warm and dry. --10:05 Debbie Rodriguez R.N. Interventions ID band on patient. To treatment room. --10:05 Debbie Rodriguez R.N. PHYSICAL ASSESSMENT To room via stretcher. GENERAL / NEURO / PSYCH: Alert. Oriented X 4. Appears in no acute distress. HEENT: Mucous membranes are pink. RESPIRATORY: Mild respiratory distress. The patient can speak in full sentences. CVS: Cardiac rhythm: normal sinus rhythm. Capillary refill less than 2 seconds. GI / : Abdominal distention. Abdomen soft and nontender. SKIN: Skin is warm and dry. Normal skin turgor. --10:07 Debbie Rodriguez R.N. NURSING PROGRESS NOTES Oxygen administered at 3 liters (O2 mask). equipment monitor phototypesetting, pulse oximeter and NIBP monitor placed on patient; monitor alarms on. Two patient identifiers checked. Checked patient name and birthdate. Call light placed in reach. Side rails up x 2. Bed placed in lowest position. Brakes of bed on. Patient ready for evaluation- chart flagged and ED physician notified. --10:05 Debbie Rodriguez R.N. 10:06 07/04/2016 Site #1 started prior to arrival by EMS via IV in the left hand with an 20g angiocath. --10:06 Debbie Rodriguez R.N. 10:07/04/16. ( Labs drawn from IV site.). --10:06 Debbie Rodriguez R.N. 10:07/04/16. ( Pt asking for food.). --10:09 Debbie Rodriguez R.N. 10:52 07/04/16. BP: 162/75. HR: 97. RR: 30. O2 saturation: 98% on face mask at 3 liters/minute. --10:54 Debbie Rodriguez R.N. 10:55 07/04/16. The patient reports no complaints and he is resting quietly. Spouse at bedside. --10:55 Debbie Rodriguez R.N. EKG time: (10:04 AM). EKG was performed by a tech and shown to the ED physician. --11:30 Danae Antunez 11:31 07/04/16. equipment monitor phototypesetting, pulse oximeter, end tidal CO2 monitor and NIBP monitor placed on patient; monitor alarms on (ETCO2 65). --11:31 Debbie Rodriguez R.N. 11:31 07/04/16. BP: 145/71. HR: 93. RR: 28. O2 saturation: 91% on nasal cannula at 3 liters/minute. --11:32 Debbie Rodriguez R.N. 11:45 07/04/2016 Started bag #1 1000 mL IV Fluids IV NS (Saline); at 999 mL/hr over 1 hour(s) via site #1 via IV pump. Allergies verified and confirmed 5 rights. IV patency established. IV site checked: no pain, redness, or swelling. IV flushed thoroughly pre- and post-medication administration. --11:45 Debbie Rodriguez R.N. Patient transported to [place] by stretcher with tech. --11:58 Debbie Rodriguez R.N. 12:10 07/04/2016 Site #1. (line removed by pt.). --12:16 Batsheva Buchanan R.N. 12:16 07/04/2016 Site #2 started via IV in the right hand with an 20g angiocath, with aseptic technique and good blood return; one attempt. Saline lock flushed with 10 mL saline. --12:16 Batsheva Buchanan R.N. 12:37 07/04/16. BP: 148/67. HR: 89. RR: 24. O2 saturation: 95%. Additional comments: pt on bipap. --12:41 Debbie Rodriguez R.N. 12:59 07/04/2016 Started 2 gm of Ceftriaxone IVPB in bag #1 50 mL; at 150 mL/hr over 20 minute(s) via site #2 via IV pump. Allergies verified and confirmed 5 rights. IV patency established. IV site checked: no pain, redness, or swelling. IV flushed thoroughly pre- and post-medication administration. --13:04 Debbie Rodriguez R.N. 13:15 07/04/2016 Ceftriaxone IVPB Discontinued: bag #1 infused. Total amount infused: 50 mL. IV patency established. IV site checked: no pain, redness, or swelling. IV flushed thoroughly. --13:15 Debbie Rodriguez R.N. 13:20 07/04/2016 Started 900 mg of Clindamycin IVPB in bag #1 50 mL; at 100 mL/hr over 30 minute(s) via site #2 via IV pump. Allergies verified and confirmed 5 rights. IV patency established. IV site checked: no pain, redness, or swelling. IV flushed thoroughly pre- and post-medication administration. --13:20 Debbie Rodriguez R.N. 13:33 07/04/16. ( Pt became agitated and took off bipap mask. Pt stating he wants to leave. Pt being rude and abusive to staff. ED MD notified and went and spoke to pt. Pt informed he needs to cooperate with staff. Pt agrees to cooperate and continue treatment.). --13:33 Debbie Rodriguez R.N. 13:39 07/04/2016 Clindamycin IVPB Discontinued: bag #1 infused. Total amount infused: 50 mL. IV patency established. IV site checked: no pain, redness, or swelling. IV flushed thoroughly. --13:54 Debbie Rodriguez R.N. 13:55 07/04/2016 Started 500 mg of Zithromax (Azithromycin) IVPB in bag #1 250 mL; at 250 mL/hr over 1 hour(s) via site #2 via IV pump. Allergies verified and confirmed 5 rights. IV patency established. IV site checked: no pain, redness, or swelling. IV flushed thoroughly pre- and post-medication administration. --13:55 Debbie Rodriguez R.N. 14:16 07/04/16. HR: 93. RR: 24. O2 saturation: 90%. Additional comments: pt on bipap. --14:17 Debbie Rodriguez R.N. DISPOSITION / DISCHARGE 15:17 07/04/16. BP: 100/62. HR: 92. RR: 25. O2 saturation: 90% on face mask at 3 liters/minute. Pain level now: 0/10. --15:23 Debbie Rodriguez R.N. Departure time: 15:Jul 04 2016. Condition at departure: improved and stable. Admitted. Transported via stretcher by nurse with monitor and O2. Report was given to a nurse via a phone call. Report included patient's care, treatment, medications, reviewed medication reconcilliation, and condition (including any recent changes or anticipated changes). All questions were answered. Report was acknowledged and care was transferred. (RAMESH Conde). Patient has no belongings. --15:23 Debbie Rodriguez R.N. 12:00 07/04/2016 Site #1 removed. Catheter intact. Manual pressure and bandage applied. --17:28 Debbie Rodriguez R.N. 12:00 07/04/2016 IV Fluids IV NS Discontinued: bag #1 infused. Total amount infused: 1000 mL. --17:30 Debbie Rodriguez R.N. 14:55 07/04/2016 Zithromax IVPB Discontinued: bag #1 infused. Total amount infused: 250 mL. IV patency established. IV site checked: no pain, redness, or swelling. IV flushed thoroughly. --17:29 Debbie Rodriguez R.N. 15:20 07/04/2016 Site #[address] upon admission; patent, no pain and no signs of infection or infiltration. Flushed with 10 mL saline. --17:26 Debbie Rodriguez R.N. Locked/Released at 07/04/2016 17:30 by Debbie Rodriguez R.N.
--- NOTE | 2016-07-04 12:42 | ED ORDER SUMMARY ---
..... Patient: YVES MEEK OrderSheet [facility] VisitID: [id number] [address] [place] [address] 51y, M Registration Date/Time: 07/04/2016 ORDER SHEET Weight: 131.5 kg (stated) Allergies: Clarithromycin GENERAL ORDERS: Chest 1V Urgent (10:07/04/2016 Misty LOCKHART) (Ack 10:02 Abebe) (11:32 MWinterer R.N.) Teacher Adult Education (Continuous) (10:07/04/2016 Misty LOCKHART) (10:08 MWinterer R.N.) CBC w Diff Urgent (10:07/04/2016 Misty LOCKHART) (Ack 10:02 Abebe) (10:08 MWinterer R.N.) CMP Urgent (10:07/04/2016 Misty LOCKHART) (Ack 10:02 Abebe) (10:08 MWinterer R.N.) Amylase Urgent (10:07/04/2016 Misty LOCKHART) (Ack 10:02 Abebe) (10:08 MWinterer R.N.) Lipase Urgent (10:07/04/2016 Misty LOCKHART) (Ack 10:02 Abebe) (10:08 MWinterer R.N.) CPK Urgent (10:07/04/2016 Misty LOCKHART) (Ack 10:02 Abebe) (10:08 MWinterer R.N.) Troponin-I Urgent (10:07/04/2016 Misty LOCKHART) (Ack 10:02 Abebe) (10:08 MWinterer R.N.) BNP Urgent (10:07/04/2016 Misty LOCKHART) (Ack 10:02 Abebe) (10:08 MWinterer R.N.) PCT (Procalcitonin) Urgent (10:07/04/2016 Misty LOCKHART) (Ack 10:02 Abebe) (10:08 MWinterer R.N.) Oxygen (2 L/min) (NC) (10:07/04/2016 Misty LOCKHART) (10:08 MWinterer R.N.) Pulse oximeter (10:07/04/2016 Misty LOCKHART) (10:08 MWinterer R.N.) EKG - ER Stat (10:07/04/2016 Misty LOCKHART) (Ack 10:02 ALEoerner) (10:08 MWinterer R.N.) ABG (G) Urgent (11:07/04/2016 Misty LOCKHART) (Ack 11:16 Abebe) (11:26 Abebe) Blood Culture (No) (N/A) Urgent (11:14 07/04/2016 Misty LOCKHART) (Ack 11:16 MWinterer R.N.) (Ack 11:16 Abebe) (11:26 Abebe) Lactate, Serum Urgent (11:07/04/2016 Misty LOCKHART) (Ack 11:16 Abebe) (11:18 MWinterer R.N.) PCT (Procalcitonin) Urgent (11:07/04/2016 Misty LOCKHART) (Ack 11:16 Abebe) (11:18 MWinterer R.N.) CT Abd/Pel w Cont (No) (See report) Urgent (11:07/04/2016 Misty LOCKHART) (Ack 11:21 Abebe) (12:07 Rancho) MEDICATION ORDERS: IV FLUIDS: IV Saline Lock (10:07/04/2016 Misty LOCKHART) (10:08 MWinterer R.N.) IV NS : initial bolus 1000 mL (1000 mL/hr), then 200 mL/hr for 4h (NOW); Urgent (11:07/04/2016 Misty LOCKHART) (Ack 11:17 MWinterer R.N.) (11:45 MWinterer R.N.) Ceftriaxone IV 2 gm/50mL (NOW) (12:07/04/2016 Misty LOCKHART) (Ack 12:47 MWinterer R.N.) (13:04 MWinterer R.N.) Zithromax IV 500 mg/250 mL (NOW) (12:07/04/2016 Misty LOCKHART) (Ack 12:47 MWinterer R.N.) (13:55 MWinterer R.N.) Clindamycin IV 900 mg/50mL (NOW) (12:57 07/04/2016 Misty LOCKHART) (Ack 13:07 MWinterer R.N.) (13:20 MWinterer R.N.) ORDER SHEET NOTES: [Electronically signed by Debbie Rodriguez R.N. (17:30 07/04/2016)] [Electronically signed by Bryant Vann MD (19:32 07/04/2016)] [Electronically locked/signed by Debbie Rodriguez R.N. (17:30 07/04/2016)]
--- NOTE | 2016-07-04 12:42 | ED ORDER SUMMARY ---
..... Patient: YVES MEEK OrderSheet [facility] VisitID: [id number] [address] [place] [address] 51y, M Registration Date/Time: 07/04/2016 ORDER SHEET Weight: 131.5 kg (stated) Allergies: Clarithromycin GENERAL ORDERS: Chest 1V Urgent (10:07/04/2016 Misty LOCKHART) (Ack 10:02 Abebe) (11:32 MWinterer R.N.) Direct Marketing Coordinator (Continuous) (10:07/04/2016 Misty LOCKHART) (10:08 MWinterer R.N.) CBC w Diff Urgent (10:07/04/2016 Misty LOCKHART) (Ack 10:02 Abebe) (10:08 MWinterer R.N.) CMP Urgent (10:07/04/2016 Misty LOCKHART) (Ack 10:02 Abebe) (10:08 MWinterer R.N.) Amylase Urgent (10:07/04/2016 Misty LOCKHART) (Ack 10:02 Abebe) (10:08 MWinterer R.N.) Lipase Urgent (10:07/04/2016 Misty LOCKHART) (Ack 10:02 Abebe) (10:08 MWinterer R.N.) CPK Urgent (10:07/04/2016 Misty LOCKHART) (Ack 10:02 Abebe) (10:08 MWinterer R.N.) Troponin-I Urgent (10:07/04/2016 Misty LOCKHART) (Ack 10:02 Abebe) (10:08 MWinterer R.N.) BNP Urgent (10:07/04/2016 Misty LOCKHART) (Ack 10:02 Abebe) (10:08 MWinterer R.N.) PCT (Procalcitonin) Urgent (10:07/04/2016 Misty LOCKHART) (Ack 10:02 Abebe) (10:08 MWinterer R.N.) Oxygen (2 L/min) (NC) (10:07/04/2016 Misty LOCKHART) (10:08 MWinterer R.N.) Pulse oximeter (10:07/04/2016 Misty LOCKHART) (10:08 MWinterer R.N.) EKG - ER Stat (10:07/04/2016 Misty LOCKHART) (Ack 10:02 ALEoerner) (10:08 MWinterer R.N.) ABG (G) Urgent (11:07/04/2016 Misty LOCKHART) (Ack 11:16 Abebe) (11:26 Abebe) Blood Culture (No) (N/A) Urgent (11:14 07/04/2016 Misty LOCKHART) (Ack 11:16 MWinterer R.N.) (Ack 11:16 Abebe) (11:26 Abebe) Lactate, Serum Urgent (11:07/04/2016 Misty LOCKHART) (Ack 11:16 Abebe) (11:18 MWinterer R.N.) PCT (Procalcitonin) Urgent (11:07/04/2016 Misty LOCKHART) (Ack 11:16 Abebe) (11:18 MWinterer R.N.) CT Abd/Pel w Cont (No) (See report) Urgent (11:07/04/2016 Misty LOCKHART) (Ack 11:21 Abebe) (12:07 Rancho) MEDICATION ORDERS: IV FLUIDS: IV Saline Lock (10:07/04/2016 Misty LOCKHART) (10:08 MWinterer R.N.) IV NS : initial bolus 1000 mL (1000 mL/hr), then 200 mL/hr for 4h (NOW); Urgent (11:07/04/2016 Misty LOCKHART) (Ack 11:17 MWinterer R.N.) (11:45 MWinterer R.N.) Ceftriaxone IV 2 gm/50mL (NOW) (12:07/04/2016 Misty LOCKHART) (Ack 12:47 MWinterer R.N.) (13:04 MWinterer R.N.) Zithromax IV 500 mg/250 mL (NOW) (12:07/04/2016 Misty LOCKHART) (Ack 12:47 MWinterer R.N.) (13:55 MWinterer R.N.) Clindamycin IV 900 mg/50mL (NOW) (12:57 07/04/2016 Misty LOCKHART) (Ack 13:07 MWinterer R.N.) (13:20 MWinterer R.N.) ORDER SHEET NOTES: [Electronically signed by Debbie Rodriguez R.N. (17:30 07/04/2016)] [Electronically signed by Bryant Vann MD (19:32 07/04/2016)] [Electronically locked/signed by Debbie Rodriguez R.N. (17:30 07/04/2016)]
--- NOTE | 2016-07-04 12:42 | ED CLINICAL REPORT ---
Clinical Report - Physicians/Mid Levels [facility] [address] [place] [address] 07/04/2016 9:58 Patient: YVES MEEK Time Seen: 09:59. Arrived- By ambulance. Historian- EMS personnel and spouse. History limited by patient's respiratory distress. Physical Exam limited by poor cooperation. HISTORY OF PRESENT ILLNESS Chief Complaint: DYSPNEA and HISTORY OF CHRONIC OBSTRUCTIVE PULMONARY DISEASE and CONGESTIVE HEART FAILURE. This started today and is still present. It was abrupt in onset and has been constant. The dyspnea is severe. No cough, sputum production, fever, sweating episodes or chills. No chest discomfort, calf pain or foot swelling. He has had dyspnea on exertion. Similar symptoms previously: REVIEW OF SYSTEMS The patient has had fatigue, difficulty breathing and abdominal pain. The pain is described as located in the left side of the abdomen and experienced sweats. No calf pain, pedal edema or palpitations. All systems otherwise negative, except as recorded above. PAST HISTORY Problems: Hypoxia. COPD - Chronic Obstructive Pulmonary Disease. Cardiovascular Risk Factors. Cellulitis. GI Bleeding. Additional Surgeries: Back Surgery. Knee Surgery. Neck Surgery. Wrist. Medications: PredniSONE Oral. Potassimin Oral. Oxycodone-Acetaminophen Oral 5/325 mg. Furosemide Oral 20 mg. Cefuroxime Axetil Oral 500 mg. Carvedilol Oral (Tablet 3.125 mg). Atrovent HFA Inhalation. Allergies: Clarithromycin. (Gi bleed). SOCIAL HISTORY Current some days smoker (cigarette). No alcohol use or drug use. FAMILY HISTORY Denies family medical history. ADDITIONAL NOTES The nursing notes have been reviewed. PHYSICAL EXAM Vital Signs: 07/04/2016 09:58 BP: 155/76. HR: 95. RR: 35. O2 saturation: 77%. Temp: 99.1 F. Pain level now: 0/10. Have been reviewed. Appearance: Alert. He is lethargic, is morbidly obese and appears older than stated age. Eyes: Pupils equal, round and reactive to light. ENT: Pharynx normal. Uvula midline. Neck: Normal inspection. No jugular venous distention. CVS: Normal heart rate and rhythm. Heart sounds normal. Respiratory: Retractions. Accessory muscle use. Prolonged expirations. Decreased air movement. Mild rhonchi present bilaterally. Abdomen: Mild tenderness. No organomegaly. Severely obese. Back: Normal inspection. Skin: Skin warm and dry. Extremities: No calf tenderness. No lower extremity edema. (bilateral lower extremity hyperpigmentation and hairlessness). LABS, X-RAYS, AND EKG EKG: Rate: 99. Right axis deviation. The study has been independently viewed by me. (no significant change when compared with the study of 09 April 2016). Chest X-ray: (IMPRESSION: 1. Retrocardiac stranding, probably atelectatic changes. Small infiltrate not excluded. 2. Slight prominence of the central vessels, chronic.). The X-rays were interpreted by the radiologist and contemporaneously by me. Abdominal CT: IMPRESSION: 1. Minor alveolitis in the posterior left lower lobe may be early primary pneumonia, sequelae of bronchitis or aspiration. 2. Mild atelectatic changes and/or scarring at the right lung base. 3. Mild sigmoid diverticulosis. The study was interpreted by the radiologist and contemporaneously by me. Laboratory Tests: CBC w Diff: (CARISSA: 07/04/2016 10:05) ( MsgRcvd 07/04/2016 10:19) Final results Test Result Flag Units (Reference) WHITE BLOOD COUNT 13.6 H K/uL (4.5-11.5) RED BLOOD COUNT 4.55 M/uL (4.50-5.90) HEMOGLOBIN 14.2 gm/dL (13.5-17.5) HEMATOCRIT 44.0 % (41.0-53.0) MEAN CELL VOLUME 97 fL (80-100) MEAN CORPUSCULAR HGB 31 pg (26-34) MEAN CORPUSCULAR HGB CONC 32 g/dL (31-37) RED CELL DISTRIBUTION WIDTH 14.8 % (11.6-14.8) PLATELET COUNT 266 K/uL (150-400) NEUTROPHIL % 82.2 H % (50-75) LYMPH % 10.4 L % (25-40) MONO % 5.7 % (3-14) EOSINOPHIL % 1.4 % (0-4) BASOPHIL % 0.3 % (0-2) Lactate, Serum: (CARISSA: 07/04/2016 11:30) ( [facility] 07/04/2016 12:42) Final results Test Result Flag Units (Reference) LACTIC ACID 0.4 mmol/L (0.4-2.0) BNP: (CARISSA: 07/04/2016 10:05) ( [facility] 07/04/2016 10:43) Final results Test Result Flag Units (Reference) B-TYPE NATRIURETIC PEPTIDE 36.6 pg/ml (5-100) [id number]: (CARISSA: 07/04/2016 10:05) ( [facility] 07/04/2016 11:49) Final results Test Result Flag Units (Reference) PROCALCITONIN <0.5 ng/mL (0-0.5) PCT Concentration: Interpretation : Risk/option for action PCT <=0.5 ng/mL : Systemic : Low risk forinfection(sepsis): progression to severeis not likely. : systemic infection.Local bacterial : CAUTION-PCT levelsinfection is : below 0.5 ng/mL do notpossible. : exclude an infection,because localizedinfections (withoutsystemic signs) may beassociated with suchlow levels. If PCT ismeasured very earlyafter a bacterialchallenge (usually <6hours), these valuesmay still be low. Inthis case PCT shouldbe re-assessed 6-24hours later. PCT >0.5 and : Systemic infection: Moderate risk for<= 2 ng/mL : (sepsis) is : progression to severepossible, but : systemic infection.other conditions : The patient should beare known to : closely monitoredelevate PCT. : both clinically andby re-assessing PCTwithin 6-24 hours. PCT > 2 ng/mL : Systemic infection: High risk for(sepsis) is likely: progression to severeunless other : systemic infection.causes are known. : PCT >= 10 ng/mL : Important systemic: High likelihood ofinflammatory : severe sepsis orresponse, almost : septic shock.exclusively due to:severe bacterial :sepsis or septic :shock. : CMP: (CARISSA: 07/04/2016 10:05) ( MsgRcvd 07/04/2016 10:39) Final results Test Result Flag Units (Reference) GLUCOSE 114 H mg/dL (70-110) BUN 14 mg/dL (7-18) CREATININE 0.8 mg/dL (0.6-1.3) Estimated GFR >60 mL/min Estimated GFR- >60 mL/min Note: Persistent reduction over 3 months in eGFR<60 mL/min/1.73 m2 defines CKD. Patients with eGFR values>=60 mL/min/1.73 m2 may also have CKD if evidence ofpersistent proteinuria. Additional information may be foundat www.kidney.org. SODIUM 145 mmol/L (136-145) POTASSIUM 4.9 mmol/L (3.5-5.1) CHLORIDE 101 mmol/L (98-107) CARBON DIOXIDE 41 *H mmol/L (21-32) CALCIUM 8.6 mg/dL (8.5-10.1) TOTAL PROTEIN 7.9 g/dL (6.4-8.2) ALBUMIN 3.1 L g/dL (3.3-5.0) BILIRUBIN, TOTAL 0.3 mg/dL (0.0-1.0) ALKALINE PHOSPHATASE 94 U/L (46-116) AST (SGOT) 20 U/L (15-37) ALT (SGPT) 26 U/L (12-78) LIPASE 108 U/L (73-393) AMYLASE 60 U/L (25-115) CPK 74 U/L (24-260) TROPONIN I <0.05 ng/mL (0.00-1.5) TROPONIN REFERENCE RANGE:<0.1 NEGATIVE0.1-1.5 INDETERMINANT>1.5 POSITIVE ABG: (CARISSA: 07/04/2016 11:11) ( MsgRcvd 07/04/2016 11:37) Final results Test Result Flag Units (Reference) FIO2 32 % (20-101) ABG MODE OF DELIVERY OXYMASK MODIFIED PARKER TEST POSITIVE? YES LITERS PER MIN. 3 L/MIN (0-20) ABG PATIENT RESP RATE 32 /MIN ARTERIAL BLOOD GAS SITE RR ARTERIAL BLOOD GAS pH 7.25 L (7.35-7.45) ABG PCO2 105.0 *H mmHg (35-45) ABG PO2 50.2 L mmHg (80.0-100.0) ABG BASE EXCESS 15.5 *H mmol/L (-6.0--6.0) ABG HCO3 45.6 *H mmol/L (20.0-26.0) ABG TCO2 48.8 *H mmol/L (24.0-30.0) ABG [id number] 61.2 H mmHg (7.0-14.0) *NOTE: Normal rangeis based on aFIO2 of 21% ABG SAT O2 84.7 L % (95.1-100.0) ABG TOTAL HEMOGLOBIN 14.3 g/dL (14.0-18.0) ABG O2 HEMOGLOBIN 79.2 *L % (95.0-100.0) ABG CARBOXYHEMOGLOBIN 6.2 H % (0.5-1.5) ABG METHEMOGLOBIN 0.3 L % (0.4-1.5) ABG RHEMOGLOBIN 14.3 % . PROGRESS AND PROCEDURES Discussed case with hospitalist, (Roberto - he saw the patient in the ER). Reviewed test results and need for additional work-up. Agreed upon treatment plan, need for patient follow-up and decision to admit. Patient/family counseled. Old medical records ordered. Disposition: Admitted. CLINICAL IMPRESSION Pneumonia. Obstructive sleep apnea. Hypercapnia. Hypoxia. (Electronically signed by Bryant Vann MD 07/04/2016 19:32)
--- NOTE | 2016-07-04 14:28 | Progress Note ---
Subjective General Admission History and Physical Examination Patient Name: Wilfred Mcgraw Admission Date: July 04, 2016 Primary Care Provider: Dr. ERASTO De Jesus ([facility].) Pulmonology clinic with [facility] Attending Physician: Beck Mejia M.D. Admitting Physician: Beck Mejia M.D. Code Status: FULL CODE Room: Status: obs. ccu SUBJECTIVE Historian: Patient Reliability: Fair Chief Complaint: Shortness of breath, dyspnia History of Present Illness: The patient is a 51-year-old white male with a significant past medical history of OBEY, COPD, who presented to [facility] emergency room on the day of admission secondary to complaints of shortness of breath, dyspnea and mental status changes. The [facility] ER evaluation was consistent with copd, pneumonia, hypoxia leading to respiratory failure with overlying COPD. Secondary to the above, the patient was admitted by Beck Mejia M.D. for further evaluation and treatment. Patient was found throughout the day by his , having respiratory distress. said that he just has had trouble breathing throughout the day. Appears to be working really hard to breathe. So showing signs of acute confusion at times. Patient was brought into the [facility] in emergency department with difficulty with breathing. Patient also had pain all over. [facility] EDV examined, found him to be tender in the left lower abdominal region. CT of abdomen was done that diverticulosis without diverticulitis. Patient has no reported cough, no productive sputum. No sweating or chills. No chest discomfort. Having reports of swelling of lower extremity. No history of palpitations PAST MEDICAL HISTORY Illnesses: 1. COPD 2. CHF 3.. Obesity 4. Obstructive sleep apnea 5. Hypoxia. 6. Cellulitis. 7. GI bleed Allergies: 1. NKDA Medications: 1. Symbicort 1 inhalation every 12 hours. 2. Spiriva one inhalation every 24 hours 3. Albuterol 1-2 puffs every 4 hours as needed for shortness of breath 4. Lasix 20 mg daily as needed for swelling 5. 20 mEq potassium chloride by mouth taken with potassium with Lasix. 6. Oxycodone-acetaminophen oral 5-325 7. Carvedilol 3.125 mg twice a day. Surgery: left wrist orthopedic procdure (age 20's) Neck surgical procedure The surgical procedure Injuries: 1. Injury to the left wrist, hand and knee H 20s. Hospitalizations: March for respiratory distress, hypercapnia, FAMILY HISTORY Parents: 1. Fathe, , 2. Mother, living Siblings: Children: 1. one child Other significant family history: None SOCIAL HISTORY 1. Marital Status: 2. Spiritism: unknown 3. Education: unknown 4. Employment History: [employer] employee 5. Occupational health exposures: Patient denies any significant occupational exposures HABITS 1. Tobacco: Past use, stopped smoking recently 2. Drugs: Marijuana 3. Alcohol: None 4. Caffeine: Unknown HEALTH SUPERVISION Item/Test unknown IMMUNIZATIONS: Unknown ADVANCED DIRECTIVES: 1. Living well: No 2. POLST: No 3. Code Status: FULL CODE 4. 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 Donor card: No REVIEW OF SYSTEMS Remarkable for those things stated in the history of present illness and past medical history. Seventeen point review of system completed with the following notable findings: Constitutional Weakness. Denies: Chills. ENT Denies: Nasal Discharge, Mouth Pain. Respiratory SOB w/exertion. Cardiovascular Edema. Denies: Palpitations, Orthopnea. Gastrointestinal Abdominal Pain. Skin Other (hyperpigmentation lower extrem). Neurological Confusion. Physical Exam Vital Signs / I&Os Vital Signs Date Time Temp Pulse Resp B/P Pulse O2 O2 Flow FiO2 Ox Delivery Rate 07/04 1335 3.0 07/04 1134 3.0 BP: 155/76. HR: 95. RR: 35. O2 saturation: 77% on room air. Temp: 99.1 F (oral). General Appearance Alert, Oriented X3, Mild distress HEENT EOMI Lungs rhonchi in the lower lung field bilaterally. Neck Supple Cardiovascular Regular rate and rhythm, Normal S1 and S2, No murmurs, gallops, rubs Abdomen tenderness in the left lower quadrant, bowel sounds are appreciated Protuberant, nondistended. No guarding Extremities swelling lower extremity, hyperpigmentation with hyperkeratosis of the lower extremity. Skin hyperpigmentation with hyperkeratosis lower extremity. Psych/Mental Status Mental status normal, Confused, appears to be some element of effusion. LAB Results Laboratory Tests 07/04 07/04 07/04 07/04 07/04 1005 1005 1005 1111 1116 Blood Gas Sample Site RR Total CO2 (24.0 - 30.0 mmol/L) 48.8 ABG pH (7.35 - 7.45) 7.25 ABG pCO2 at Pt Temp (35 - 45 mmHg) 105.0 ABG pO2 at Pt Temp (80.0 - 100.0 mmHg) 50.2 ABG HCO3 (20.0 - 26.0 mmol/L) 45.6 ABG O2 Sat Calc/Sandeep (95.1 - 100.0 %) 84.7 ABG Base Excess (-6.0 - -6.0 mmol/L) 15.5 ABG Reduced Hgb (%) 14.3 ABG Carboxyhemoglobin (0.5 - 1.5 %) 6.2 ABG Methemoglobin (0.4 - 1.5 %) 0.3 Shalom Test YES Other Total Hgb (14.0 - 18.0 g/dL) 14.3 A-a O2 Gradient (7.0 - 14.0 mmHg) 61.2 Hgb O2 Saturation (95.0 - 100.0 %) 79.2 Respiration Rate (/MIN) 32 O2 Liters/Min (0 - 20 L/MIN) 3 Vent Mode OXYMASK FiO2 (20 - 101 %) 32 Chemistry Plasma Sodium (136 - 145 mmol/L) 145 Plasma Potassium (3.5 - 5.1 mmol/L) 4.9 Plasma Chloride (98 - 107 mmol/L) 101 CO2 (Enzymatic) (21 - 32 mmol/L) 41 BUN (7 - 18 mg/dL) 14 Creatinine (0.6 - 1.3 mg/dL) 0.8 Est GFR ( Amer) (mL/min) >60 Est GFR (Non-Af Amer) (mL/min) >60 Glucose (70 - 110 mg/dL) 114 Plasma Calcium (8.5 - 10.1 mg/dL) 8.6 Total Bilirubin (0.0 - 1.0 mg/dL) 0.3 AST (15 - 37 U/L) 20 ALT (12 - 78 U/L) 26 Alkaline Phosphatase (46 - 116 U/L) 94 Creatine Kinase (24 - 260 U/L) 74 Troponin (0.00 - 1.5 ng/mL) <0.05 B-Natriuretic Peptide (5 - 100 pg/ml) 36.6 Total Protein (6.4 - 8.2 g/dL) 7.9 Albumin (3.3 - 5.0 g/dL) 3.1 Amylase (25 - 115 U/L) 60 Lipase (73 - 393 U/L) 108 Procalcitonin (0 - 0.5 ng/mL) <0.5 Cancelled Hematology WBC (4.5 - 11.5 K/uL) 13.6 RBC (4.50 - 5.90 M/uL) 4.55 Hgb (13.5 - 17.5 gm/dL) 14.2 Hct (41.0 - 53.0 %) 44.0 MCV (80 - 100 fL) 97 MCH (26 - 34 pg) 31 RDW (11.6 - 14.8 %) 14.8 Neut % (Auto) (50 - 75 %) 82.2 Lymph % (Auto) (25 - 40 %) 10.4 [place] % (Auto) (3 - 14 %) 5.7 Eos % (Auto) (0 - 4 %) 1.4 Baso % (Auto) (0 - 2 %) 0.3 Plt Count, EDTA (150 - 400 K/uL) 266 PUBS MCHC (31 - 37 g/dL) 32 07/04 1130 Chemistry Lactic Acid (0.4 - 2.0 mmol/L) 0.4 Microbiology Date/Time Procedure - Status Source Growth 07/04 1130 Blood Culture - RECD BLOOD 07/04 1005 Blood Culture - RECD BLOOD Imaging CT abdomen and pelvis 1. Minor alveolitis in the posterior left lower lobe may be early primary pneumonia, sequelae of bronchitis or aspiration. 2. Mild atelectatic changes and/or scarring at the right lung base. 3. Mild sigmoid diverticulosis. Chest x-ray 1. Retrocardiac stranding, probably atelectatic changes. Small infiltrate not excluded. 2. Slight prominence of the central vessels, chronic. Assessment and Plan Problem List 1. Respiratory failure Plan Degree of respiratory failure on admission. Patient with desaturations down in the 60s without O2. Patient was placed on CPAP in the ED. We'll continue with the same. Continue with settings of 4 and 10. Previous assessment through pulmonology without requirement for sleep apnea. Continue With the IV normal saline at 100 cc per hour. There is an area in the lower lung field that shows a pneumonitis versus infection. Or combination. Continue with the respiratory therapy 2. Hypoxia Plan Found to be hypoxic on admission. Patient does not have O2 at home. Patient is classic OBEY probable pickwickian with COPD. Patient is been under sleep study protocol the past. It is not yet completed. Patient has not completely tolerated the CPAP in the past. We will attempt to improve on the fitting in supply of the option for non-ventilation and airway. 3. COPD (chronic obstructive pulmonary disease) Plan COPD. Duoebs every 6 hours when necessary. Advair, Symbicort at bedside. Puff every 12 hours. Incentive spirometry. CPAP 4. Obstructive sleep apnea Plan Needs pulmonology to review patient's needs. 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 Patient will need to miss this and reschedule. 5. CHF (congestive heart failure) Plan Congestive failure. To note the carvedilol, also Lasix 20 mg by mouth twice a day. Potassium replacement if needed. 6. Dyspnea Plan Found to be dyspneic this a.m. Patient is admitted with respiratory failure and hypoxia. Current status: Guarded Unstable, Anticipated discharge date: Anticipated discharge in 2-3 days Anticipated discharge placement: Home Patient care time: Time spent in chart review, patient interview, physical exam, CPOE, and care documentation: 70 minutes Visit to patient today: 1 Complexity of care: Mild/moderate DVT prophylaxis: SCDs GI prophylaxis: Pepcid 20mg IV Initial patient evaluation: Emergency department Advance care plan: Full code E&M Codes Rounding: Inpt-High/[id number]
--- NOTE | 2016-07-04 14:28 | Progress Note ---
Subjective General Admission History and Physical Examination Patient Name: Wilfred Mcgraw Admission Date: July 04, 2016 Primary Care Provider: Dr. ERASTO De Jesus ([facility].) Pulmonology clinic with [facility] Attending Physician: Beck Mejia M.D. Admitting Physician: Beck Mejia M.D. Code Status: FULL CODE Room: Status: obs. ccu SUBJECTIVE Historian: Patient Reliability: Fair Chief Complaint: Shortness of breath, dyspnia History of Present Illness: The patient is a 51-year-old white male with a significant past medical history of OBEY, COPD, who presented to [facility] emergency room on the day of admission secondary to complaints of shortness of breath, dyspnea and mental status changes. The [facility] ER evaluation was consistent with copd, pneumonia, hypoxia leading to respiratory failure with overlying COPD. Secondary to the above, the patient was admitted by Beck Mejia M.D. for further evaluation and treatment. Patient was found throughout the day by his , having respiratory distress. said that he just has had trouble breathing throughout the day. Appears to be working really hard to breathe. So showing signs of acute confusion at times. Patient was brought into the [facility] in emergency department with difficulty with breathing. Patient also had pain all over. [facility] EDV examined, found him to be tender in the left lower abdominal region. CT of abdomen was done that diverticulosis without diverticulitis. Patient has no reported cough, no productive sputum. No sweating or chills. No chest discomfort. Having reports of swelling of lower extremity. No history of palpitations PAST MEDICAL HISTORY Illnesses: 1. COPD 2. CHF 3.. Obesity 4. Obstructive sleep apnea 5. Hypoxia. 6. Cellulitis. 7. GI bleed Allergies: 1. NKDA Medications: 1. Symbicort 1 inhalation every 12 hours. 2. Spiriva one inhalation every 24 hours 3. Albuterol 1-2 puffs every 4 hours as needed for shortness of breath 4. Lasix 20 mg daily as needed for swelling 5. 20 mEq potassium chloride by mouth taken with potassium with Lasix. 6. Oxycodone-acetaminophen oral 5-325 7. Carvedilol 3.125 mg twice a day. Surgery: left wrist orthopedic procdure (age 20's) Neck surgical procedure The surgical procedure Injuries: 1. Injury to the left wrist, hand and knee H 20s. Hospitalizations: March for respiratory distress, hypercapnia, FAMILY HISTORY Parents: 1. Fathe, , 2. Mother, living Siblings: Children: 1. one child Other significant family history: None SOCIAL HISTORY 1. Marital Status: 2. Confucianist: unknown 3. Education: unknown 4. Employment History: [employer] employee 5. Occupational health exposures: Patient denies any significant occupational exposures HABITS 1. Tobacco: Past use, stopped smoking recently 2. Drugs: Marijuana 3. Alcohol: None 4. Caffeine: Unknown HEALTH SUPERVISION Item/Test unknown IMMUNIZATIONS: Unknown ADVANCED DIRECTIVES: 1. Living well: No 2. POLST: No 3. Code Status: FULL CODE 4. 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 Donor card: No REVIEW OF SYSTEMS Remarkable for those things stated in the history of present illness and past medical history. Seventeen point review of system completed with the following notable findings: Constitutional Weakness. Denies: Chills. ENT Denies: Nasal Discharge, Mouth Pain. Respiratory SOB w/exertion. Cardiovascular Edema. Denies: Palpitations, Orthopnea. Gastrointestinal Abdominal Pain. Skin Other (hyperpigmentation lower extrem). Neurological Confusion. Physical Exam Vital Signs / I&Os Vital Signs Date Time Temp Pulse Resp B/P Pulse O2 O2 Flow FiO2 Ox Delivery Rate 07/04 1335 3.0 07/04 1134 3.0 BP: 155/76. HR: 95. RR: 35. O2 saturation: 77% on room air. Temp: 99.1 F (oral). General Appearance Alert, Oriented X3, Mild distress HEENT EOMI Lungs rhonchi in the lower lung field bilaterally. Neck Supple Cardiovascular Regular rate and rhythm, Normal S1 and S2, No murmurs, gallops, rubs Abdomen tenderness in the left lower quadrant, bowel sounds are appreciated Protuberant, nondistended. No guarding Extremities swelling lower extremity, hyperpigmentation with hyperkeratosis of the lower extremity. Skin hyperpigmentation with hyperkeratosis lower extremity. Psych/Mental Status Mental status normal, Confused, appears to be some element of effusion. LAB Results Laboratory Tests 07/04 07/04 07/04 07/04 07/04 1005 1005 1005 1111 1116 Blood Gas Sample Site RR Total CO2 (24.0 - 30.0 mmol/L) 48.8 ABG pH (7.35 - 7.45) 7.25 ABG pCO2 at Pt Temp (35 - 45 mmHg) 105.0 ABG pO2 at Pt Temp (80.0 - 100.0 mmHg) 50.2 ABG HCO3 (20.0 - 26.0 mmol/L) 45.6 ABG O2 Sat Calc/Sadneep (95.1 - 100.0 %) 84.7 ABG Base Excess (-6.0 - -6.0 mmol/L) 15.5 ABG Reduced Hgb (%) 14.3 ABG Carboxyhemoglobin (0.5 - 1.5 %) 6.2 ABG Methemoglobin (0.4 - 1.5 %) 0.3 Shalom Test YES Other Total Hgb (14.0 - 18.0 g/dL) 14.3 A-a O2 Gradient (7.0 - 14.0 mmHg) 61.2 Hgb O2 Saturation (95.0 - 100.0 %) 79.2 Respiration Rate (/MIN) 32 O2 Liters/Min (0 - 20 L/MIN) 3 Vent Mode OXYMASK FiO2 (20 - 101 %) 32 Chemistry Plasma Sodium (136 - 145 mmol/L) 145 Plasma Potassium (3.5 - 5.1 mmol/L) 4.9 Plasma Chloride (98 - 107 mmol/L) 101 CO2 (Enzymatic) (21 - 32 mmol/L) 41 BUN (7 - 18 mg/dL) 14 Creatinine (0.6 - 1.3 mg/dL) 0.8 Est GFR ( Amer) (mL/min) >60 Est GFR (Non-Af Amer) (mL/min) >60 Glucose (70 - 110 mg/dL) 114 Plasma Calcium (8.5 - 10.1 mg/dL) 8.6 Total Bilirubin (0.0 - 1.0 mg/dL) 0.3 AST (15 - 37 U/L) 20 ALT (12 - 78 U/L) 26 Alkaline Phosphatase (46 - 116 U/L) 94 Creatine Kinase (24 - 260 U/L) 74 Troponin (0.00 - 1.5 ng/mL) <0.05 B-Natriuretic Peptide (5 - 100 pg/ml) 36.6 Total Protein (6.4 - 8.2 g/dL) 7.9 Albumin (3.3 - 5.0 g/dL) 3.1 Amylase (25 - 115 U/L) 60 Lipase (73 - 393 U/L) 108 Procalcitonin (0 - 0.5 ng/mL) <0.5 Cancelled Hematology WBC (4.5 - 11.5 K/uL) 13.6 RBC (4.50 - 5.90 M/uL) 4.55 Hgb (13.5 - 17.5 gm/dL) 14.2 Hct (41.0 - 53.0 %) 44.0 MCV (80 - 100 fL) 97 MCH (26 - 34 pg) 31 RDW (11.6 - 14.8 %) 14.8 Neut % (Auto) (50 - 75 %) 82.2 Lymph % (Auto) (25 - 40 %) 10.4 [place] % (Auto) (3 - 14 %) 5.7 Eos % (Auto) (0 - 4 %) 1.4 Baso % (Auto) (0 - 2 %) 0.3 Plt Count, EDTA (150 - 400 K/uL) 266 PUBS MCHC (31 - 37 g/dL) 32 07/04 1130 Chemistry Lactic Acid (0.4 - 2.0 mmol/L) 0.4 Microbiology Date/Time Procedure - Status Source Growth 07/04 1130 Blood Culture - RECD BLOOD 07/04 1005 Blood Culture - RECD BLOOD Imaging CT abdomen and pelvis 1. Minor alveolitis in the posterior left lower lobe may be early primary pneumonia, sequelae of bronchitis or aspiration. 2. Mild atelectatic changes and/or scarring at the right lung base. 3. Mild sigmoid diverticulosis. Chest x-ray 1. Retrocardiac stranding, probably atelectatic changes. Small infiltrate not excluded. 2. Slight prominence of the central vessels, chronic. Assessment and Plan Problem List 1. Respiratory failure Plan Degree of respiratory failure on admission. Patient with desaturations down in the 60s without O2. Patient was placed on CPAP in the ED. We'll continue with the same. Continue with settings of 4 and 10. Previous assessment through pulmonology without requirement for sleep apnea. Continue With the IV normal saline at 100 cc per hour. There is an area in the lower lung field that shows a pneumonitis versus infection. Or combination. Continue with the respiratory therapy 2. Hypoxia Plan Found to be hypoxic on admission. Patient does not have O2 at home. Patient is classic OBEY probable pickwickian with COPD. Patient is been under sleep study protocol the past. It is not yet completed. Patient has not completely tolerated the CPAP in the past. We will attempt to improve on the fitting in supply of the option for non-ventilation and airway. 3. COPD (chronic obstructive pulmonary disease) Plan COPD. Duoebs every 6 hours when necessary. Advair, Symbicort at bedside. Puff every 12 hours. Incentive spirometry. CPAP 4. Obstructive sleep apnea Plan Needs pulmonology to review patient's needs. 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 Patient will need to miss this and reschedule. 5. CHF (congestive heart failure) Plan Congestive failure. To note the carvedilol, also Lasix 20 mg by mouth twice a day. Potassium replacement if needed. 6. Dyspnea Plan Found to be dyspneic this a.m. Patient is admitted with respiratory failure and hypoxia. Current status: Guarded Unstable, Anticipated discharge date: Anticipated discharge in 2-3 days Anticipated discharge placement: Home Patient care time: Time spent in chart review, patient interview, physical exam, CPOE, and care documentation: 70 minutes Visit to patient today: 1 Complexity of care: Mild/moderate DVT prophylaxis: SCDs GI prophylaxis: Pepcid 20mg IV Initial patient evaluation: Emergency department Advance care plan: Full code E&M Codes Rounding: Inpt-High/[id number]
[2016-07-04] MEDS ORDERED: CARVEDILOL3.125 MG PO (18:42)
[2016-07-04] MEDS ORDERED: KLOR-CON 1010 MEQ PO (18:43)
[2016-07-04] MEDS ORDERED: FUROSEMIDE20 MG PO (18:43)
[2016-07-04] MEDS ORDERED: PROAIR HFA IN (18:44)
--- NOTE | 2016-07-04 19:33 | ED DISCHARGE INSTRUCTIONS ---
Patient: YVES MEEK General Instructions [facility] VisitID: [id number] [address] [place] [address] 51y, M Registration Date/Time: 07/04/2016 Pneumonia. Obstructive sleep apnea. Hypercapnia. Hypoxia. (Electronically signed by Bryant Vann MD 07/04/2016 19:32)
--- NOTE | 2016-07-04 19:33 | ED MAR SUMMARY ---
..... Medication Administration Record [facility] [address] [place] [address] Patient: YVES MEEK Visit ID: [id number] 51y, M Weight: 131.5 kg Height/Length: 66 in BMI: 46.8 ALLERGIES: Clarithromycin Start 11:45 07/04/2016 Debbie Rdoriguez R.N., Stop 12:00 07/04/2016 Debbie Rodriguez R.N. Medication Administered: IV NS (SALINE), Dose: IV Fluids over 1 hour(s), Rate: 999 mL/hr, Dispensed: 1000 mL bag, Site: #1 left hand. Medication Ordered: IV NS : initial bolus 1000 mL (1000 mL/hr), then 200 mL/hr for 4h (NOW); Urgent. Start 12:59 07/04/2016 Debbie Rodriguez R.N., Stop 13:15 07/04/2016 Debbie Rodriguez R.N. Medication Administered: CEFTRIAXONE [IVPB], Dose: 2 gm IVPB over 20 minute(s), Rate: 150 mL/hr, Dispensed: 50 mL bag, Site: #2 right hand. Medication Ordered: Ceftriaxone IV 2 gm/50mL (NOW). Start 13:20 07/04/2016 Debbie Rodriguez R.N., Stop 13:39 07/04/2016 Debbie Rodriguez R.N. Medication Administered: CLINDAMYCIN [IVPB], Dose: 900 mg IVPB over 30 minute(s), Rate: 100 mL/hr, Dispensed: 50 mL bag, Site: #2 right hand. Medication Ordered: Clindamycin IV 900 mg/50mL (NOW). Start 13:55 07/04/2016 Debbie Rodriguez R.N., Stop 14:55 07/04/2016 Debbie Rodriguez R.N. Medication Administered: ZITHROMAX [IVPB] (AZITHROMYCIN), Dose: 500 mg IVPB over 1 hour(s), Rate: 250 mL/hr, Dispensed: 250 mL bag, Site: #2 right hand. Medication Ordered: Zithromax IV 500 mg/250 mL (NOW).
--- NOTE | 2016-07-04 19:33 | ED MED RECONCILIATION SUMMARY ---
Patient: YVES MEEK Medication Reconciliation Report [facility] VisitID: [id number] [address] [place] [address] 51y, M Registration Date/Time: 07/04/2016 Weight: 131.5 kg Height/Length: 66 in. BMI: 46.8 ALLERGIES: Clarithromycin The patient's Home Medications are listed below: THE FOLLOWING MEDICATIONS NEED TO BE RECONCILED: Atrovent HFA Inhalation Carvedilol Oral (3.125 mg) Cefuroxime Axetil Oral 500 mg Furosemide Oral 20 mg Oxycodone-Acetaminophen Oral 5/325 mg Potassimin Oral PredniSONE Oral The source(s) of the original Home Medication information: patient The following Medications were given to the patient in the Emergency Department: IV NS IV Fluids bolus 0, then 999 mL/hr, administered: 07/04/2016 11:45:00 AM Ceftriaxone [IVPB] IVPB bolus 0, then 2 gm 150 mL/hr, administered: 07/04/2016 12:59:00 PM Clindamycin [IVPB] IVPB bolus 0, then 900 mg 100 mL/hr, administered: 07/04/2016 1:20:00 PM Zithromax [IVPB] IVPB bolus 0, then 500 mg 250 mL/hr, administered: 07/04/2016 1:55:00 PM The following Medications were prescribed to the patient: None.
--- NOTE | 2016-07-04 19:33 | ED MAR SUMMARY ---
..... Medication Administration Record [facility] [address] [place] [address] Patient: YVES MEEK Visit ID: [id number] 51y, M Weight: 131.5 kg Height/Length: 66 in BMI: 46.8 ALLERGIES: Clarithromycin Start 11:45 07/04/2016 Debbie Rodriguez R.N., Stop 12:00 07/04/2016 Debbie Rodriguez R.N. Medication Administered: IV NS (SALINE), Dose: IV Fluids over 1 hour(s), Rate: 999 mL/hr, Dispensed: 1000 mL bag, Site: #1 left hand. Medication Ordered: IV NS : initial bolus 1000 mL (1000 mL/hr), then 200 mL/hr for 4h (NOW); Urgent. Start 12:59 07/04/2016 Debbie Rodriguez R.N., Stop 13:15 07/04/2016 Debbie Rodriguez R.N. Medication Administered: CEFTRIAXONE [IVPB], Dose: 2 gm IVPB over 20 minute(s), Rate: 150 mL/hr, Dispensed: 50 mL bag, Site: #2 right hand. Medication Ordered: Ceftriaxone IV 2 gm/50mL (NOW). Start 13:20 07/04/2016 Debbie Rodriguez R.N., Stop 13:39 07/04/2016 Debbie Rodriguez R.N. Medication Administered: CLINDAMYCIN [IVPB], Dose: 900 mg IVPB over 30 minute(s), Rate: 100 mL/hr, Dispensed: 50 mL bag, Site: #2 right hand. Medication Ordered: Clindamycin IV 900 mg/50mL (NOW). Start 13:55 07/04/2016 Debbie Rodriguez R.N., Stop 14:55 07/04/2016 Debbie Rodriguez R.N. Medication Administered: ZITHROMAX [IVPB] (AZITHROMYCIN), Dose: 500 mg IVPB over 1 hour(s), Rate: 250 mL/hr, Dispensed: 250 mL bag, Site: #2 right hand. Medication Ordered: Zithromax IV 500 mg/250 mL (NOW).
--- NOTE | 2016-07-04 19:33 | ED MED RECONCILIATION SUMMARY ---
Patient: YVES MEEK Medication Reconciliation Report [facility] VisitID: [id number] [address] [place] [address] 51y, M Registration Date/Time: 07/04/2016 Weight: 131.5 kg Height/Length: 66 in. BMI: 46.8 ALLERGIES: Clarithromycin The patient's Home Medications are listed below: THE FOLLOWING MEDICATIONS NEED TO BE RECONCILED: Atrovent HFA Inhalation Carvedilol Oral (3.125 mg) Cefuroxime Axetil Oral 500 mg Furosemide Oral 20 mg Oxycodone-Acetaminophen Oral 5/325 mg Potassimin Oral PredniSONE Oral The source(s) of the original Home Medication information: patient The following Medications were given to the patient in the Emergency Department: IV NS IV Fluids bolus 0, then 999 mL/hr, administered: 07/04/2016 11:45:00 AM Ceftriaxone [IVPB] IVPB bolus 0, then 2 gm 150 mL/hr, administered: 07/04/2016 12:59:00 PM Clindamycin [IVPB] IVPB bolus 0, then 900 mg 100 mL/hr, administered: 07/04/2016 1:20:00 PM Zithromax [IVPB] IVPB bolus 0, then 500 mg 250 mL/hr, administered: 07/04/2016 1:55:00 PM The following Medications were prescribed to the patient: None.
--- NOTE | 2016-07-04 19:33 | ED DISCHARGE INSTRUCTIONS ---
Patient: YVES MEEK General Instructions [facility] VisitID: [id number] [address] [place] [address] 51y, M Registration Date/Time: 07/04/2016 Pneumonia. Obstructive sleep apnea. Hypercapnia. Hypoxia. (Electronically signed by Bryant Vann MD 07/04/2016 19:32)
[2016-07-05] VITALS (31 sets, daily range): BP systolic 78–158; BP diastolic 38–87
--- NOTE | 2016-07-05 06:57 | Progress Note ---
Subjective General Note Date: Admission Date: 07/04/2016 Hospital Day: 2 PCP: none Status: Observation ccu Advanced Directive: Full code Room: 301 Brief history 51-year-old white male with a significant past medical history of OBEY, COPD, who presented to [facility] emergency room on the day of admission secondary to complaints of shortness of breath, dyspnea and mental status changes. The [facility] ER evaluation was consistent with copd, pneumonia, hypoxia leading to respiratory failure with overlying COPD. Secondary to the above, the patient was admitted by Beck Mejia M.D. for further evaluation and treatment. Subjective Patient had a rough night overnight. Patient was combative and walked out of the room removed most appliances. 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 Patient wanted to be discharged home but then elected to stay for further care. This morning, patient was found to be hypersomnolent but poor blood gas reading. Patient was intubated proximally 7 AM this morning placed on assisted sedative. Patient will be on ventilation protocol. Patient requests at bedside. Discussed the events of the night with and current plan of care. Constitutional Denies: Fever. Physical Exam Vital Signs / I&Os Vital Signs Date Time Temp Pulse Resp B/P Pulse O2 O2 Flow FiO2 Ox Delivery Rate 07/05 0601 106 103 98 Bipap 100 07/05 0533 103 16 99 Bipap 100 07/05 0409 97 19 147/83 98 Bipap 100 07/05 0313 94 21 147/83 94 Bipap 100 07/05 0210 97.0 98 28 147/60 97 Bipap 100 07/05 0105 93 21 98 Bipap 100 07/05 0024 79 27 126/60 92 Bipap 30 05/ 2228 98.4 05/ 2208 84 32 129/74 90 Bipap 30 05/ 2100 83 24 123/64 91 Bipap 30 05/ 2048 92 05/2008 86 18 175/102 90 Mask 4.0 05/2000 4.0 /1999 4.0 05/ 1917 94 28 162/73 85 Mask 3.0 05/ 1811 95 24 135/74 90 Mask 3.0 05/ 1714 104 17 151/71 05/ 1600 Mask 3.0 05/08 1534 98.8 96 12 142/80 80 Mask 3.0 07/04 1335 3.0 07/04 1134 3.0 I&O 07/04 0800 07/04 1600 07/05 0000 Intake Total 354 Output Total Balance 354 General Appearance moderate distress; and initial examination; sedated HEENT Moist mucous membranes Lungs ventilated Airway movement, equal bilaterally Cardiovascular Regular rate and rhythm, Normal S1 and S2 Abdomen Soft, No guarding, protuberant. Skin No Rashes, No Breakdown Psych/Mental Status sedated; intubated LAB Results Laboratory Tests 07/04 07/04 07/04 07/04 07/04 1005 1005 1005 1111 1116 Blood Gas Sample Site RR Total CO2 (24.0 - 30.0 mmol/L) 48.8 ABG pH (7.35 - 7.45) 7.25 ABG pCO2 at Pt Temp (35 - 45 mmHg) 105.0 ABG pO2 at Pt Temp (80.0 - 100.0 mmHg) 50.2 ABG HCO3 (20.0 - 26.0 mmol/L) 45.6 ABG O2 Sat Calc/Sandeep (95.1 - 100.0 %) 84.7 ABG Base Excess (-6.0 - -6.0 mmol/L) 15.5 ABG Reduced Hgb (%) 14.3 ABG Carboxyhemoglobin (0.5 - 1.5 %) 6.2 ABG Methemoglobin (0.4 - 1.5 %) 0.3 Shalom Test YES Other Total Hgb (14.0 - 18.0 g/dL) 14.3 A-a O2 Gradient (7.0 - 14.0 mmHg) 61.2 Hgb O2 Saturation (95.0 - 100.0 %) 79.2 Respiration Rate (/MIN) 32 O2 Liters/Min (0 - 20 L/MIN) 3 Vent Mode OXYMASK FiO2 (20 - 101 %) 32 Chemistry Plasma Sodium (136 - 145 mmol/L) 145 Plasma Potassium (3.5 - 5.1 mmol/L) 4.9 Plasma Chloride (98 - 107 mmol/L) 101 CO2 (Enzymatic) (21 - 32 mmol/L) 41 BUN (7 - 18 mg/dL) 14 Creatinine (0.6 - 1.3 mg/dL) 0.8 Est GFR ( Amer) (mL/min) >60 Est GFR (Non-Af Amer) (mL/min) >60 Glucose (70 - 110 mg/dL) 114 Plasma Calcium (8.5 - 10.1 mg/dL) 8.6 Total Bilirubin (0.0 - 1.0 mg/dL) 0.3 AST (15 - 37 U/L) 20 ALT (12 - 78 U/L) 26 Alkaline Phosphatase (46 - 116 U/L) 94 Creatine Kinase (24 - 260 U/L) 74 Troponin (0.00 - 1.5 ng/mL) <0.05 B-Natriuretic Peptide (5 - 100 pg/ml) 36.6 Total Protein (6.4 - 8.2 g/dL) 7.9 Albumin (3.3 - 5.0 g/dL) 3.1 Amylase (25 - 115 U/L) 60 Lipase (73 - 393 U/L) 108 Procalcitonin (0 - 0.5 ng/mL) <0.5 Cancelled Hematology WBC (4.5 - 11.5 K/uL) 13.6 RBC (4.50 - 5.90 M/uL) 4.55 Hgb (13.5 - 17.5 gm/dL) 14.2 Hct (41.0 - 53.0 %) 44.0 MCV (80 - 100 fL) 97 MCH (26 - 34 pg) 31 RDW (11.6 - 14.8 %) 14.8 Neut % (Auto) (50 - 75 %) 82.2 Lymph % (Auto) (25 - 40 %) 10.4 [place] % (Auto) (3 - 14 %) 5.7 Eos % (Auto) (0 - 4 %) 1.4 Baso % (Auto) (0 - 2 %) 0.3 Plt Count, EDTA (150 - 400 K/uL) 266 PUBS MCHC (31 - 37 g/dL) 32 07/04 07/04 07/05 07/05 1130 1600 0400 0400 Blood Gas Sample Site RR Total CO2 (24.0 - 30.0 mmol/L) 47.4 ABG pH (7.35 - 7.45) 7.25 ABG pCO2 at Pt Temp (35 - 45 mmHg) 100.0 ABG pO2 at Pt Temp (80.0 - 100.0 mmHg) 52.1 ABG HCO3 (20.0 - 26.0 mmol/L) 44.3 ABG O2 Sat Calc/Sandeep (95.1 - 100.0 %) 85.4 ABG Base Excess (-6.0 - -6.0 mmol/L) 14.6 ABG Reduced Hgb (%) 13.8 ABG Carboxyhemoglobin (0.5 - 1.5 %) 5.0 ABG Methemoglobin (0.4 - 1.5 %) 0.3 Shalom Test YES Other Total Hgb (14.0 - 18.0 g/dL) 13.6 A-a O2 Gradient (7.0 - 14.0 mmHg) 49.4 Hgb O2 Saturation (95.0 - 100.0 %) 80.9 Temperature (C) 37 Respiration Rate (/MIN) 20 O2 Liters/Min (0 - 20 L/MIN) 3 Vent Mode OXY FiO2 (20 - 101 %) 30 Chemistry Hemoglobin A1c % Cancelled Lactic Acid (0.4 - 2.0 mmol/L) 0.4 Cancelled Hematology WBC Cancelled RBC Cancelled Hgb Cancelled Hct Cancelled MCV Cancelled MCH Cancelled RDW Cancelled Plt Count, EDTA Cancelled PUBS MCHC Cancelled 07/05 07/05 07/05 07/05 0400 0415 0415 0415 Chemistry Plasma Sodium (136 - 145 mmol/L) 148 Plasma Potassium (3.5 - 5.1 mmol/L) 4.7 Plasma Chloride (98 - 107 mmol/L) 105 CO2 (Enzymatic) (21 - 32 mmol/L) 42 BUN (7 - 18 mg/dL) 15 Creatinine (0.6 - 1.3 mg/dL) 0.8 Est GFR ( Amer) (mL/min) >60 Est GFR (Non-Af Amer) (mL/min) >60 Glucose (70 - 110 mg/dL) 123 Hemoglobin A1c % (4.5 - 6.2 %) 6.1 Lactic Acid (0.4 - 2.0 mmol/L) <0.3 Plasma Calcium (8.5 - 10.1 mg/dL) 8.2 Plasma Magnesium (1.8 - 2.4 mg/dL) 2.1 Total Bilirubin (0.0 - 1.0 mg/dL) 0.3 AST (15 - 37 U/L) 21 ALT (12 - 78 U/L) 36 Alkaline Phosphatase (46 - 116 U/L) 94 Total Protein (6.4 - 8.2 g/dL) 7.2 Albumin (3.3 - 5.0 g/dL) 3.2 TSH 3rd Generation (0.34 - 3.74 uIU/mL) Cancelled 1.866 Hematology WBC (4.5 - 11.5 K/uL) 13.6 RBC (4.50 - 5.90 M/uL) 4.35 Hgb (13.5 - 17.5 gm/dL) 13.6 Hct (41.0 - 53.0 %) 42.6 MCV (80 - 100 fL) 98 MCH (26 - 34 pg) 31 RDW (11.6 - 14.8 %) 15.8 Neut % (Auto) (50 - 75 %) 82.4 Lymph % (Auto) (25 - 40 %) 10.2 [place] % (Auto) (3 - 14 %) 3.4 Eos % (Auto) (0 - 4 %) 3.9 Baso % (Auto) (0 - 2 %) 0.1 Plt Count, EDTA (150 - 400 K/uL) 249 PUBS MCHC (31 - 37 g/dL) 32 Microbiology Date/Time Procedure - Status Source Growth 07/04 1130 Blood Culture - RECD BLOOD 07/04 1005 Blood Culture - RECD BLOOD Imaging CXR 1. Placement of ET tube in satisfactory position. 2. Development of dense consolidation in the right lung with mild changes in the left lung. Findings are compatible with pneumonia (e.g., aspiration, bacterial). 3. Findings called to the intensive care unit (A). Assessment and Plan Problem List 1. Respiratory failure Plan Progressive failure. Patient has mild noninvasive airway control. Patient now intubated on ventilation. We'll continue with the same settings. Bronchial airway control and hygiene Nebs every 4 hours. Blood gases this evening and then in the a.m. 2. Hypoxia Plan Patient hypoxic on room air. Patient ventilated, with an O2, titrate. 3. COPD (chronic obstructive pulmonary disease) Plan COPD with respiratory failure. Intubated, ventilated. Intended to monitor. 4. Obstructive sleep apnea Plan Will need outpatient follow-up Will need to be discharged to CPAP, BiPAP. 5. CHF (congestive heart failure) Plan Optimize light diuresis Daily CMP 6. Dyspnea Plan Found to be dyspneic on admission Maintain airway with ventilatory support Current status: Guarded, severe Anticipated discharge date: Anticipated discharge in 2-3 days Anticipated discharge placement: Home Patient care time: Time spent in chart review, patient interview, physical exam, CPOE, and care documentation: 5 minutes Visit to patient today: Complexity of care: Moderate DVT prophylaxis: SCDs GI prophylaxis: Pepcid 20mg IV Initial patient evaluation: Emergency department Advance care plan: Full code E&M Codes Rounding: Inpt-High/[id number]
--- NOTE | 2016-07-05 08:26 | DIAGNOSTIC IMAGING REPORT ---
PROCEDURE: XR CHEST 1 VIEW INDICATION: ETT PLACEMENT TECHNIQUE: Portable AP view (0805 hours). COMPARISON: Compared to chest x-ray on 12/14/2015. FINDINGS: ET tube has been placed in satisfactory position (4 cm above the marilyn). There has been development of dense consolidation in the right lung with mild parenchymal changes in the left lateral lung and medial lung base. Heart and mediastinum are normal. Thorax is normal. IMPRESSION: 1. Placement of ET tube in satisfactory position. 2. Development of dense consolidation in the right lung with mild changes in the left lung. Findings are compatible with pneumonia (e.g., aspiration, bacterial). 3. Findings called to the intensive care unit (A).
[2016-07-06] VITALS (24 sets, daily range): BP systolic 107–155; BP diastolic 59–85
--- NOTE | 2016-07-06 07:10 | Progress Note ---
Subjective General Note Date: Admission Date: 07/04/2016 Hospital Day: 1 PCP: none Status: In patient ccu Advanced Directive: Full code Room: 301 Brief history 51-year-old white male with a significant past medical history of OBEY, COPD, who presented to [facility] emergency room on the day of admission secondary to complaints of shortness of breath, dyspnea and mental status changes. The [facility] ER evaluation was consistent with copd, pneumonia, hypoxia leading to respiratory failure with overlying COPD. Due to poor performance on Non invasive ventilation and respiratory distress, paitent was intubated / ventulated. Subjective Patient seen at bedside Patient intubated and sedated. Patient comfortable. Constitutional Denies: Fever. Physical Exam Vital Signs / I&Os Vital Signs Date Time Temp Pulse Resp B/P Pulse O2 O2 Flow FiO2 Ox Delivery Rate 07/06 0700 99.9 81 16 110/70 93 Ventilator 0.0 05/10 0610 81 16 117/73 93 Ventilator 0.0 05/10 0510 100.2 05/10 0505 100.2 89 16 114/63 91 Ventilator 0.0 05/10 0407 89 16 109/64 91 Ventilator 0.0 05/10 0307 82 16 129/62 93 Ventilator 0.0 05/10 0200 100.6 86 16 155/80 93 Ventilator 0.0 05/10 0107 102 16 133/81 91 Ventilator 0.0 05/10 0015 96 16 124/61 92 Ventilator 0.0 05/09 2306 85 16 113/64 91 Ventilator 0.0 05/09 2232 101.1 05/ 2156 86 16 119/66 93 Ventilator 70 05/09 2100 88 16 96/50 91 Ventilator 0.0 05/09 2048 90/51 05/09 2005 95 16 90/46 91 Ventilator 70 05/09 1944 Ventilator 0.0 05/09 1943 90 16 112/55 95 Ventilator 70 05/09 1904 84 16 106/63 90 Ventilator 70 05/09 1807 100.8 05/09 1801 98 16 115/59 94 Ventilator 70 05/09 1737 93 16 112/55 93 Ventilator 70 05/09 1704 84 16 96/49 93 Ventilator 70 05/09 1620 87 16 113/55 93 Ventilator 70 05/09 1604 84 16 82/39 92 Ventilator 70 05/09 1513 85 16 78/39 93 Ventilator 70 05/09 1443 85 16 85/38 92 Ventilator 70 05/09 1355 100.9 88 16 99/63 95 Ventilator 0.0 05/09 1343 88 16 95 05/09 1339 16 05/09 1300 99.9 87 16 94/60 94 Ventilator 0.0 05/ 1200 85 16 119/71 94 70 05/ 1100 99.9 83 16 95/45 95 Ventilator 0.0 05/09 1030 81 16 94/50 95 100 05/09 1012 83 16 96/52 95 Ventilator 100 05/09 0956 83 16 135/79 95 100 05/09 0932 100 22 135/79 95 100 05/09 0900 88 05/09 0900 99.3 93 16 111/87 97 Ventilator 0.0 05/ 0815 99 16 132/75 97 Ventilator 0.0 05/ 0800 Ventilator 100 / 0800 98 16 138/72 96 Ventilator 0.0 05/ 0744 99.3 106 16 129/73 96 Ventilator 0.0 / 0730 97.0 107 27 158/73 98 Bipap 4.0 I&O 07/05 0800 05/ 1600 07/06 0000 Intake Total 0 1160 0 Output Total 500 1305 1625 Balance -500 -145 -1625 General Appearance intubated and sedated Lungs Normal air movement, improved air movement over the night Neck Supple Cardiovascular Normal S1 and S2 Abdomen Soft, No tenderness LAB Results Laboratory Tests 07/06 07/06 0500 0525 Blood Gas Sample Site RR Total CO2 (24.0 - 30.0 mmol/L) 46.8 ABG pH (7.35 - 7.45) 7.43 ABG pCO2 at Pt Temp (35 - 45 mmHg) 67.8 ABG pO2 at Pt Temp (80.0 - 100.0 mmHg) 56.1 ABG HCO3 (20.0 - 26.0 mmol/L) 44.7 ABG O2 Sat Calc/Sandeep (95.1 - 100.0 %) 90.5 ABG Base Excess (-6.0 - -6.0 mmol/L) 18.2 ABG Reduced Hgb (%) 9.3 ABG Carboxyhemoglobin (0.5 - 1.5 %) 2.1 ABG Methemoglobin (0.4 - 1.5 %) 0.2 Shalom Test NO Other Total Hgb (14.0 - 18.0 g/dL) 12.6 A-a O2 Gradient (7.0 - 14.0 mmHg) 367.2 Hgb O2 Saturation (95.0 - 100.0 %) 88.4 Respiration Rate (/MIN) 16 Vent Mode AMV FiO2 (20 - 101 %) 70 Tidal Volume (cc) 500 PEEP (cmH2O) 8 Blood Gas Comments [id number] Chemistry Plasma Sodium (136 - 145 mmol/L) 146 Plasma Potassium (3.5 - 5.1 mmol/L) 3.8 Plasma Chloride (98 - 107 mmol/L) 106 CO2 (Enzymatic) (21 - 32 mmol/L) 37 BUN (7 - 18 mg/dL) 18 Creatinine (0.6 - 1.3 mg/dL) 0.7 Est GFR ( Amer) (mL/min) >60 Est GFR (Non-Af Amer) (mL/min) >60 Glucose (70 - 110 mg/dL) 110 Plasma Calcium (8.5 - 10.1 mg/dL) 8.1 Phosphorus (2.5 - 4.9 mg/dL) 3.8 Plasma Magnesium (1.8 - 2.4 mg/dL) 2.1 Total Bilirubin (0.0 - 1.0 mg/dL) 0.7 AST (15 - 37 U/L) 22 ALT (12 - 78 U/L) 29 Alkaline Phosphatase (46 - 116 U/L) 77 Total Protein (6.4 - 8.2 g/dL) 6.5 Albumin (3.3 - 5.0 g/dL) 2.7 Hematology WBC (4.5 - 11.5 K/uL) 12.3 RBC (4.50 - 5.90 M/uL) 4.02 Hgb (13.5 - 17.5 gm/dL) 12.7 Hct (41.0 - 53.0 %) 38.6 MCV (80 - 100 fL) 96 MCH (26 - 34 pg) 32 RDW (11.6 - 14.8 %) 15.4 Neut % (Auto) (50 - 75 %) 77.3 Lymph % (Auto) (25 - 40 %) 12.6 [place] % (Auto) (3 - 14 %) 7.4 Eos % (Auto) (0 - 4 %) 2.5 Baso % (Auto) (0 - 2 %) 0.2 Plt Count, EDTA (150 - 400 K/uL) 236 PUBS MCHC (31 - 37 g/dL) 33 Assessment and Plan Problem List 1. Respiratory failure Plan With hypercapnic respiratory failure prior to admission and intubated due to the same. Patient currently on ventilation with appropriate settings. Patient is brought Cassis responded normalized. Attempted daily sedation vacation along with pressure support ventilation. Weaning from the Vent should be done as soon as possible. 2. Hypoxia Plan Found to be hypoxic on room air at admission. 3. COPD (chronic obstructive pulmonary disease) Plan COPD with sleep apnea. Elevated right-sided cardiac pressures should be reviewed. This may be a component of patient's failure. Echocardiogram once extubated. 4. Obstructive sleep apnea Plan Will need outpatient sleep study and management. 5. CHF (congestive heart failure) Plan As discussed above. His more right-sided heart failure consideration. Diuresis should be light. Maintain optimal cardiac function. Nutritional support. Current status: Poor unstable, Anticipated discharge date: Anticipated discharge 3-4 days; placement. Anticipated discharge placement: Home with home care Patient care time: Time spent in chart review, patient interview, physical exam, CPOE, and care documentation: 35 minutes Visit to patient today: 2 Complexity of care: severe. Initial patient evaluation: Emergency department consultation DVT prophylaxis: Lovenox GI: Pantoprazole E&M Codes Rounding: Inpt-High/[id number]
--- NOTE | 2016-07-06 07:37 | DIAGNOSTIC IMAGING REPORT ---
PROCEDURE: XR CHEST 1 VIEW INDICATION: INTUBATION TECHNIQUE: Single view chest. 05:17 hours COMPARISON: 07/05/2016 and 07/04/2016 FINDINGS: Endotracheal tube in stable position. There is now a nasogastric tube in place. Lung volumes are quite low. Slight improvement in dense right upper lobe consolidation with persistent fluffy alveolar opacity in the right [id number] lung and left lower lung. Heart size is accentuated by low lung volumes. No change to the bones. IMPRESSION: 1. Nasogastric tube and endotracheal tube in adequate position. 2. Very low lung volumes. 3. Persistent bilateral alveolar opacities with slight improved aeration in the right upper lobe.
--- NOTE | 2016-07-06 07:37 | DIAGNOSTIC IMAGING REPORT ---
PROCEDURE: XR CHEST 1 VIEW INDICATION: INTUBATION TECHNIQUE: Single view chest. 05:17 hours COMPARISON: 07/05/2016 and 07/04/2016 FINDINGS: Endotracheal tube in stable position. There is now a nasogastric tube in place. Lung volumes are quite low. Slight improvement in dense right upper lobe consolidation with persistent fluffy alveolar opacity in the right [id number] lung and left lower lung. Heart size is accentuated by low lung volumes. No change to the bones. IMPRESSION: 1. Nasogastric tube and endotracheal tube in adequate position. 2. Very low lung volumes. 3. Persistent bilateral alveolar opacities with slight improved aeration in the right upper lobe.
[2016-07-07] VITALS (24 sets, daily range): BP systolic 106–138; BP diastolic 57–81
--- NOTE | 2016-07-07 07:18 | DIAGNOSTIC IMAGING REPORT ---
PROCEDURE: XR CHEST 1 VIEW INDICATION: INTUBATION TECHNIQUE: Portable AP view 05:28 a.m. COMPARISON: Chest x-ray 07/06/2016. FINDINGS: ET tube just above the marilyn, needs to be pulled back 2 cm. Stable NG tube. Low lung volumes. Improved right basilar alveolar opacities but progression of dense retrocardiac consolidation. Probable small left pleural effusion. Thorax is normal. IMPRESSION: 1. ET tube low, which needs to be pulled back 2 cm 2. Progression of dense retrocardiac consolidation which may represent atelectasis 3. Improved right basilar infiltrate 4. Results called to Dr. Wong
--- NOTE | 2016-07-07 07:57 | Progress Note ---
Subjective General Note Date: July 07, 2016 Admission Date: July 04, 2016 Hospital Day: 4 PCP: none Status: Inpatient, CCU Advanced Directive: FULL CODE Room: 301 Brief history 51-year-old white male with a significant past medical history of OBEY, COPD, who presented to [facility] emergency room on the day of admission secondary to complaints of shortness of breath, dyspnea and mental status changes. The [facility] ER evaluation was consistent with copd, pneumonia, hypoxia leading to respiratory failure with overlying COPD. Due to poor performance on Non invasive ventilation and respiratory distress, paitent was intubated / ventulated. For other history present illness, past medical history, family history, social history, review of systems, and admission physical examination please see the patient's history and physical examination and ER visit note in the patient's medical record. Subjective Patient intubated. Responsive to noxious stimuli Patient requests None Medications and Allergies Medications Current Medications Sig/Lakeisha Start time Last Medication Dose Route Stop Time Status Admin Pantoprazole Sodium 40 MG 0700 07/07 0703 CAN Sodium Chloride 100 ML IV Midazolam HCl 50 MG ASDIRECTED 07/06 1500 AC 07/06 Sodium Chloride 100 ML IV 07/09 0830 1557 Hydromorphone HCl 1 MG Q1H PRN 07/06 0230 AC IV Acetaminophen 650 MG Q4H PRN 07/05 2300 AC 07/06 MI 0511 Furosemide 20 MG DIUB 07/06 1999 AC 07/07 IV 0628 Albuterol/Ipratropium 3 ML RTQ4H 07/05 1200 AC 07/07 IN 0718 Metoprolol Tartrate 2.5 MG Q6HR 07/05 1200 AC 07/07 IV 0628 Ceftriaxone Sodium/ 50 ML DAILY 07/05 899 AC 07/06 Dextrose IV 0845 Enoxaparin Sodium 40 MG QAM 07/05 899 AC 07/06 SC 0845 Propofol See Dose TITRATE 07/05 0745 AC 07/07 Insts (1) IV 0452 Fluticasone/ See Dose RTBID 07/05 1999 AC 07/05 Salmeterol Insts (2) IN 1139 Oxycodone/ See Dose Q6H PRN 07/04 1845 AC Acetaminophen Insts (3) PO Sodium Chloride 1,000 ML ASDIRECTED 07/04 1500 AC 07/06 IV 2257 Albuterol/Ipratropium 3 ML Q6H PRN 07/04 1415 AC 07/05 IN 1156 Docusate Sodium 250 MG BID PRN 07/04 1415 AC PO Ketorolac 30 MG Q6H PRN 07/04 1415 AC Tromethamine IV 07/09 1414 Ondansetron HCl 4 MG Q6H PRN 07/04 1415 AC IV Dose Instructions: (1)Propofol: TITRATE FOR SEDATION (2)Fluticasone/Salmeterol: 1 CLICK (3)Oxycodone/Acetaminophen: 1 - 2 TABLETS Allergies Coded Allergies: Clarithromycin (Severe, GI BLEED 07/04/16) Physical Exam Vital Signs / I&Os Vital Signs Date Time Temp Pulse Resp B/P Pulse O2 O2 Flow FiO2 Ox Delivery Rate 07/07 0700 99.7 83 16 111/68 91 Ventilator 0.0 07/07 0607 100.2 93 16 121/65 91 Ventilator 0.0 / 0509 90 16 119/67 92 Ventilator 0.0 07/07 0412 84 16 124/74 91 Ventilator 0.0 07/07 0328 80 05 0310 78 16 115/68 90 Ventilator 0.0 / 0203 100.0 80 16 117/67 91 Ventilator 0.0 / 0115 79 16 109/61 91 Ventilator 0.0 07/07 0023 80 05/ 0012 80 16 111/62 91 Ventilator 0.0 05/10 2311 81 16 112/65 90 Ventilator 0.0 05/10 2224 99.9 05/ 2209 86 16 111/63 89 Ventilator 65 05/10 2129 0.0 05/10 2123 Ventilator 0.0 05/10 2117 94 16 107/59 89 Ventilator 65 05/10 2008 101 16 152/85 87 Ventilator 65 05/10 1947 102 05/10 1901 85 16 132/75 90 Ventilator 65 05/10 1805 100.0 90 16 136/77 91 Ventilator 65 05/10 1707 95 16 117/72 94 Ventilator 70 05/10 1601 84 16 120/71 90 Ventilator 70 05/10 1515 83 16 117/71 90 Ventilator 70 05/10 1400 99.5 82 16 119/67 89 Ventilator 0.0 05/10 1308 84 16 128/74 89 Ventilator 0.0 05/10 1153 76 16 126/74 90 Ventilator 0.0 05/10 1100 99.5 80 16 130/69 90 Ventilator 0.0 07/06 1000 81 16 127/72 92 Ventilator 0.0 07/06 0900 88 16 126/68 92 Ventilator 0.0 07/06 0800 Ventilator 70 07/06 0800 97 16 114/60 92 Ventilator 0.0 I&O 07/07 0000 07/06 1600 07/06 0800 Intake Total 0 1168 2149 Output Total 317 097 5322 Balance -026 888 4251 General Appearance Patient indicated. Appropriate response to noxious stimuli Lungs Breath sounds equal. Rales present in bilateral bases. No wheezes noted Cardiovascular Regular rate and rhythm, Normal S1 and S2 Abdomen Normal bowel sounds, Soft, pendulous, obesity impairs physical examination Extremities No cyanosis, No clubbing Neurological Cranial nerves intact, No lateralizing signs, Responds appropriately to noxious stimuli LAB Results Laboratory Tests 07/07 07/07 0510 0500 Blood Gas Sample Site RR Total CO2 (24.0 - 30.0 mmol/L) 40.8 ABG pH (7.35 - 7.45) 7.39 ABG pCO2 at Pt Temp (35 - 45 mmHg) 65.0 ABG pO2 at Pt Temp (80.0 - 100.0 mmHg) 57.1 ABG HCO3 (20.0 - 26.0 mmol/L) 38.8 ABG O2 Sat Calc/Sandeep (95.1 - 100.0 %) 88.3 ABG Base Excess (-6.0 - -6.0 mmol/L) 12.2 ABG Reduced Hgb (%) 11.5 ABG Carboxyhemoglobin (0.5 - 1.5 %) 1.8 ABG Methemoglobin (0.4 - 1.5 %) 0.1 Shalom Test YES Other Total Hgb (14.0 - 18.0 g/dL) 12.9 A-a O2 Gradient (7.0 - 14.0 mmHg) 438.8 Hgb O2 Saturation (95.0 - 100.0 %) 86.6 Temperature (C) 37 Respiration Rate (/MIN) 16 Vent Mode SIMV FiO2 (20 - 101 %) 80 Tidal Volume (cc) 500 PEEP (cmH2O) 8 Pressure Support (cmH2O) 10 Chemistry Plasma Sodium (136 - 145 mmol/L) 148 Plasma Potassium (3.5 - 5.1 mmol/L) 4.0 Plasma Chloride (98 - 107 mmol/L) 106 CO2 (Enzymatic) (21 - 32 mmol/L) 37 BUN (7 - 18 mg/dL) 19 Creatinine (0.6 - 1.3 mg/dL) 0.8 Est GFR ( Amer) (mL/min) >60 Est GFR (Non-Af Amer) (mL/min) >60 Glucose (70 - 110 mg/dL) 112 Plasma Calcium (8.5 - 10.1 mg/dL) 8.0 Total Bilirubin (0.0 - 1.0 mg/dL) 0.4 AST (15 - 37 U/L) 19 ALT (12 - 78 U/L) 24 Alkaline Phosphatase (46 - 116 U/L) 70 Total Protein (6.4 - 8.2 g/dL) 6.3 Albumin (3.3 - 5.0 g/dL) 2.6 Hematology WBC (4.5 - 11.5 K/uL) 11.3 RBC (4.50 - 5.90 M/uL) 3.98 Hgb (13.5 - 17.5 gm/dL) 12.4 Hct (41.0 - 53.0 %) 38.1 MCV (80 - 100 fL) 96 MCH (26 - 34 pg) 31 RDW (11.6 - 14.8 %) 15.6 Neut % (Auto) (50 - 75 %) 72.5 Lymph % (Auto) (25 - 40 %) 10.6 [place] % (Auto) (3 - 14 %) 8.2 Eos % (Auto) (0 - 4 %) 8.4 Baso % (Auto) (0 - 2 %) 0.3 Plt Count, EDTA (150 - 400 K/uL) 236 PUBS MCHC (31 - 37 g/dL) 33 Microbiology Date/Time Procedure - Status Source Growth 07/06 2314 Respiratory Culture - [facility] [place] 07/06 2314 Culture and Gram Stain - [facility] [place] Imaging Chest X-Ray IMPRESSION: 1. ET tube low, which needs to be pulled back 2 cm 2. Progression of dense retrocardiac consolidation which may represent atelectasis 3. Improved right basilar infiltrate 4. Results called to Dr. Wong Dictated by: GRABIEL ZALDIVAR MD D: CONSTANTINE;07/07/16 0718 Assessment and Plan Problem List 1. Pneumonia Status Acute Onset Date Unknown Plan -Patient with findings of pneumonia -Progressive retrocardiac infiltrate/atelectasis -Sputum Gram stain C&S pending -Check Procalcitonin -Broaden antimicrobial coverage to Rocephin and Zosyn -Patient with progressive hypoxemia without clear evidence of ARDS 2. Respiratory failure Plan -Patient with progressive increase in O2 requirements -Bronchial hygiene protocol. -Continue DuoNeb, albuterol, add IV corticosteroids -Continue respiratory support -Patient on increased PEEP 10 with FiO2 of 65% to maintain pulse ox greater than 90% -Repeat chest x-ray q am -Consider ALI protocol 3. COPD (chronic obstructive pulmonary disease) Plan -See above 4. Hypernatremia Status Acute Onset Date Unknown Plan -Patient with hypernatremia -Change IVF to D5.2NS -Monitor 5. CHF (congestive heart failure) Plan -No clear evidence of CHF on chest x-ray -Check echocardiogram -Check BNP -Monitor Current status: Critical, unstable Anticipated discharge date: Anticipated discharge 3-4 days Anticipated discharge placement: Home Patient care time: Time spent in chart review, patient interview, physical exam, CPOE, and care documentation: 35 minutes Visit to patient today: 2 Complexity of care: High E&M Codes Rounding: Inpt-High/[id number]
[2016-07-08] VITALS (23 sets, daily range): BP systolic 118–176; BP diastolic 47–108
--- NOTE | 2016-07-08 02:19 | Progress Note ---
Subjective General Cross cover Multiple calls from nursing staff overnight. Study drops in his saturations with 100% FiO2. Patient now satting 88-87%. Elected to reduce the tidal volume to 6 per KG, increase every 8-35, increase the PEEP to 15. Started patient on a paralytic, rocuronium, titrate to paralyze. Tapered off the propofol maintained for 7. As all discussed with Dr. Ridley; [place] sales enablement lead. Discussed the history with Dr. Ridley and current state. Discussed the current limits with regards to capacity of care at this facility. Was informed that the [facility] ICU is full. Elected to proceed with ordering an echo in the a.m. With a bubble study. O3 42 AM We were unable to acquire rocuronium for vecuronium until now. Only of a small amount of rocuronium. Patient back on propofol attempting to maintain sedation. Change events that he is back to tidal volume 420, PEEP of 10, rate of 35 Attempted to acquire Flolan prostacyclin analog, the pharmacy does not have this availability. Patient was discussed and moved more to place a left side down. Spoke to Dr. Ridley again at [place]. He was confused. He was perplexed as to why the added PEEP did not help. Patient was told to come back down off. Transfer to different unit would be difficult at this time. He would need to be cannulized and likely put on a given the saturations that are occurring in the mid 80s. The Sedation is backed off Patient becomes quite agitated. Patient attempting to pull tube out on multiple occasions. Her also disease in vecuronium is available at this time. We'll attempt to put in a slow drip.
--- NOTE | 2016-07-08 07:10 | Progress Note ---
Subjective General Note Date: July 08, 2016 Admission Date: July 04, 2016 Hospital Day: 5 PCP: none Status: Inpatient, CCU Advanced Directive: FULL CODE Room: 301 Brief history 51-year-old white male with a significant past medical history of OBEY, COPD, who presented to [facility] emergency room on the day of admission secondary to complaints of shortness of breath, dyspnea and mental status changes. The [facility] ER evaluation was consistent with copd, pneumonia, hypoxia leading to respiratory failure with overlying COPD. Due to poor performance on Non invasive ventilation and respiratory distress, paitent was intubated / ventulated. For other history present illness, past medical history, family history, social history, review of systems, and admission physical examination please see the patient's history and physical examination and ER visit note in the patient's medical record. Subjective Patient intubated. Patient requests None Medications and Allergies Medications Current Medications Sig/Lakeisha Start time Last Medication Dose Route Stop Time Status Admin Rocuronium [place] 250 MG ASDIRECTED 07/08 0215 AC Sodium Chloride 25 ML IV Dextrose/Sodium 1,000 ML ASDIRECTED 07/07 2215 AC Chloride IV Methylprednisolone 40 MG Q8HR 07/07 1745 AC 07/08 Sodium Succinate IV 0604 Piperacillin/ 50 ML Q6HR 07/07 1230 AC 07/08 Tazobactam/Dextrose IV 0604 Pantoprazole Sodium 40 MG 0600 07/07 0800 AC 07/08 IV 0604 Pantoprazole Sodium 40 MG 0700 07/07 0703 CAN Sodium Chloride 100 ML IV Midazolam HCl 50 MG ASDIRECTED 07/06 1500 AC 07/06 Sodium Chloride 100 ML IV 07/09 0830 1557 Hydromorphone HCl 1 MG Q1H PRN 07/06 0230 AC IV Acetaminophen 650 MG Q4H PRN 07/05 2300 AC 07/06 GA 0511 Furosemide 20 MG DIUB 07/05 2000 AC 07/08 IV 0604 Albuterol/Ipratropium 3 ML RTQ4H 07/05 1200 AC 07/08 IN 0334 Metoprolol Tartrate 2.5 MG Q6HR 07/05 1200 AC 07/08 IV 0605 Enoxaparin Sodium 40 MG QAM 07/05 0900 AC 07/07 SC 0816 Propofol See Dose TITRATE 07/05 0745 AC 07/08 Insts (1) IV 0313 Fluticasone/ See Dose RTBID 07/05 1999 AC 07/05 Salmeterol Insts (2) IN 1139 Oxycodone/ See Dose Q6H PRN 07/04 1845 AC Acetaminophen Insts (3) PO Albuterol/Ipratropium 3 ML Q6H PRN 07/04 1415 AC 07/05 IN 1156 Docusate Sodium 250 MG BID PRN 07/04 1415 AC PO Ketorolac 30 MG Q6H PRN 07/04 1415 AC Tromethamine IV 07/09 1414 Ondansetron HCl 4 MG Q6H PRN 07/04 1415 AC IV Dose Instructions: (1)Propofol: TITRATE FOR SEDATION (2)Fluticasone/Salmeterol: 1 CLICK (3)Oxycodone/Acetaminophen: 1 - 2 TABLETS Allergies Coded Allergies: Clarithromycin (Severe, GI BLEED 07/04/16) Physical Exam Vital Signs / I&Os Vital Signs Date Time Temp Pulse Resp B/P Pulse O2 O2 Flow FiO2 Ox Delivery Rate 07/08 0638 36 07/08 0608 99.1 77 20 170/100 88 Ventilator 0.0 07/08 0529 0.0 / 0516 99.7 86 36 155/80 86 Ventilator 100 07/08 0410 99.0 76 36 142/82 88 Ventilator 0.0 / 0310 75 36 145/81 87 Ventilator / 0300 0.0 / 0210 98.2 69 36 124/66 87 Ventilator 100 / 0115 0.0 / 0112 99.0 73 20 118/61 88 Ventilator 100 05/ 0017 74 20 118/65 89 Ventilator 100 05/ 2310 99.1 76 20 121/59 89 Ventilator 100 05/ 2256 0.0 / 2202 75 20 112/57 88 Ventilator 100 05/ 2105 79 20 115/58 89 Ventilator 100 / 210 0.0 07/07 2036 Ventilator 100 07/07 2033 0.0 07/07 2002 81 20 106/58 93 Ventilator 100 07/07 1912 0.0 07/07 1909 100.2 78 16 109/59 94 Ventilator 85 05/ 1802 78 16 120/61 87 Ventilator 85 05/ 1702 83 16 121/71 90 Ventilator 85 07/07 1611 78 16 110/64 90 Ventilator 65 07/07 1506 79 16 107/60 89 Ventilator 65 07/07 1403 100.0 82 16 118/63 90 Ventilator 0.0 07/07 1311 83 16 120/69 95 Ventilator 0.0 07/07 1216 83 134/81 92 Ventilator 0.0 07/07 1111 79 16 118/67 90 Ventilator 0.0 07/07 1013 99.7 83 16 138/73 89 Ventilator 0.0 07/07 0911 89 16 120/63 90 Ventilator 0.0 07/07 0830 Ventilator 0.0 07/07 0809 99.9 91 16 89 Ventilator 65 07/07 0800 92 122/67 90 Ventilator 0.0 I&O 07/08 0000 07/07 1600 07/07 0800 Intake Total 1461 2106 Output Total 830 625 363 Balance -082 865 4572 General Appearance Patient intubated, responds to verbal stimuli Lungs Decreased breath sounds bilaterally. Basilar crackles noted. Cardiovascular Regular rate and rhythm, Normal S1 and S2 Abdomen Normal bowel sounds, Soft, distended Extremities No cyanosis, No clubbing Neurological Cranial nerves intact, No lateralizing signs Psych/Mental Status Patient intubated, does respond to verbal stimuli LAB Results Laboratory Tests 07/08 07/08 07/07 06 052014 Blood Gas Sample Site RR RR Total CO2 (24.0 - 30.0 mmol/L) 35.3 37.9 ABG pH (7.35 - 7.45) 7.56 7.50 ABG pCO2 at Pt Temp (35 - 45 mmHg) 38.0 46.5 ABG pO2 at Pt Temp (80.0 - 100.0 mmHg) 46.8 54.6 ABG HCO3 (20.0 - 26.0 mmol/L) 34.1 36.5 ABG O2 Sat Calc/Sandeep (95.1 - 100.0 %) 86.0 90.3 ABG Base Excess (-6.0 - -6.0 mmol/L) 11.0 12.1 ABG Reduced Hgb (%) 13.8 9.5 ABG Carboxyhemoglobin (0.5 - 1.5 %) 1.4 1.6 ABG Methemoglobin (0.4 - 1.5 %) 0.1 0.0 Shalom Test YES YES Other Total Hgb (14.0 - 18.0 g/dL) 13.8 12.6 A-a O2 Gradient (7.0 - 14.0 mmHg) 622.6 606.2 Hgb O2 Saturation (95.0 - 100.0 %) 84.7 88.9 Respiration Rate (/MIN) 35 20 Vent Mode SIMV SIMV FiO2 (20 - 101 %) 100 100 Tidal Volume (cc) 420 450 PEEP (cmH2O) 10 10 Pressure Support (cmH2O) 10 10 Chemistry Plasma Sodium (136 - 145 mmol/L) 144 Plasma Potassium (3.5 - 5.1 mmol/L) 3.4 Plasma Chloride (98 - 107 mmol/L) 103 CO2 (Enzymatic) (21 - 32 mmol/L) 32 BUN (7 - 18 mg/dL) 18 Creatinine (0.6 - 1.3 mg/dL) 0.9 Est GFR ( Amer) (mL/min) >60 Est GFR (Non-Af Amer) (mL/min) >60 Glucose (70 - 110 mg/dL) 188 Plasma Calcium (8.5 - 10.1 mg/dL) 8.5 Total Bilirubin (0.0 - 1.0 mg/dL) 0.4 AST (15 - 37 U/L) 21 ALT (12 - 78 U/L) 25 Alkaline Phosphatase (46 - 116 U/L) 72 Total Protein (6.4 - 8.2 g/dL) 7.6 Albumin (3.3 - 5.0 g/dL) 2.5 Hematology WBC (4.5 - 11.5 K/uL) 10.2 RBC (4.50 - 5.90 M/uL) 4.33 Hgb (13.5 - 17.5 gm/dL) 13.5 Hct (41.0 - 53.0 %) 40.9 MCV (80 - 100 fL) 95 MCH (26 - 34 pg) 31 RDW (11.6 - 14.8 %) 16.1 Neut % (Auto) (50 - 75 %) 93 Lymph % (Auto) (25 - 40 %) 5 [place] % (Auto) (3 - 14 %) 0 Eos % (Auto) (0 - 4 %) 1 Baso % (Auto) (0 - 2 %) 0 Band Neutrophils % (0 - 8 %) 1 Metamyelocytes % (0 - 1 %) 0 Myelocytes (0 - 1 %) 0 Other Cell Type 0 Plt Count, EDTA (150 - 400 K/uL) 247 Anisocytosis (manual) 1+ PUBS MCHC (31 - 37 g/dL) 33 Imaging Chest x-ray IMPRESSION: 1. Placement of left PIC line in satisfactory position (lower superior vena cava). 2. ET and NG tubes in satisfactory position. 3. Persistent left lower lobe consolidation/pneumonia with mild to moderate changes of right lung base and right upper lung. 4. Findings called to the intensive care unit ([facility]). Dictated by: TIN BLANKENSHIP MD D: ANGÉLICA;07/08/16 2649 Assessment and Plan Problem List 1. Respiratory failure Plan -Patient with findings of respiratory failure -Primarily hypoxic respiratory failure -Able to ventilate patient without problems -Patient on acute lung injury protocol -Case discussed with pulmonary medicine [facility] -Recommend continue present therapy with rotational bed of possible with the lung recruitment techniques -Patient with severe hypoxemia requiring 90-100% FiO2 with high PEEP/low-volume ventilation. 2. Pneumonia Status Acute Onset Date Unknown Plan -Patient on Rocephin/Zosyn -Bronchial washings with many WBCs and mixed arvin -WBC within normal limits -Afebrile -Continue present therapy chest x-ray shows possible progression. 3. COPD (chronic obstructive pulmonary disease) Plan -See above -Patient ventilator dependent -Continue DuoNeb, albuterol, IV corticosteroids -Prognosis poor -We'll discuss with family on arrival this afternoon. 4. Hypernatremia Status Acute Onset Date Unknown Plan -Improved -Sodium 144 -Monitor 5. Hyperglycemia Status Acute Onset Date Unknown Plan -Patient with findings of hyperglycemia -Probably stress/steroid related -Insulin sliding scale -Monitor 6. Hypokalemia Status Acute Onset Date Unknown Plan -Patient with mild hypokalemia -IV supplementation -Monitor 7. CHF (congestive heart failure) Plan -Patient with no clear evidence of CHF -Check echocardiogram -Monitor Current status: Critical, unstable Anticipated discharge date: Anticipated discharge 5-7 days Anticipated discharge placement: Home versus half-way facility Patient care time: Time spent in chart review, patient interview, physical exam, CPOE, and care documentation: 35 minutes Visit to patient today: 2 Complexity of care: High E&M Codes Rounding: Inpt-High/[id number]
--- NOTE | 2016-07-08 07:28 | DIAGNOSTIC IMAGING REPORT ---
PROCEDURE: XR CHEST 1 VIEW INDICATION: Intubated, Pneumonia, resp failure TECHNIQUE: Single view chest. 06:22 hours COMPARISON: 07/07/2016, 07/06/2016 FINDINGS: Endotracheal tube and nasogastric tube in position. Enlarged heart accentuated by low lung volumes, no significant change. Persistent dense retrocardiac consolidation suggestive of lobar atelectasis. Mild central venous congestion compared to the previous study. This may be due to low lung volumes. Improved aeration at the right lung base. No worsening pleural effusion. Intact osseous structures. IMPRESSION: 1. Persistent retrocardiac density/atelectasis. 2. Stable enlarged heart. 3. Central venous prominence compared to the prior study may be accentuated by low lung volumes. 4. Improved right lung base aeration. 5. Endotracheal and nasogastric tubes in position.
--- NOTE | 2016-07-08 14:33 | DIAGNOSTIC IMAGING REPORT ---
PROCEDURE: XR CHEST 1 VIEW INDICATION: PICC PLACEMENT TECHNIQUE: Portable AP view (1400 hours). COMPARISON: Compared to chest x-ray on earlier today (07/08/2016, 0625 hours). FINDINGS: Left PIC line in place in satisfactory position (lower superior vena cava). ET and NG tube in satisfactory position. Allowing for suboptimal inspiration, there is persistent dense left lower lobe atelectasis/pneumonia. There are mild parenchymal changes at the right lung base and right upper lung. Vascular congestion appears less pronounced. Borderline cardiomegaly. Mediastinum is normal. IMPRESSION: 1. Placement of left PIC line in satisfactory position (lower superior vena cava). 2. ET and NG tubes in satisfactory position. 3. Persistent left lower lobe consolidation/pneumonia with mild to moderate changes of right lung base and right upper lung. 4. Findings called to the intensive care unit ([facility]).
--- NOTE | 2016-07-08 18:59 | DIAGNOSTIC IMAGING REPORT ---
REFERRING PHYSICIAN/PROVIDER: Dr. Wong CONSULTING PEARL GLUE DRIER: Natalia Chavez MD PROCEDURE: Echocardiogram TECHNICAL QUALITY: Fair; c/b patient being combative INDICATION: pulmonary and ventricular pressures. Needing a bubble study. RHYTHM DURING PROCEDURE: NSR INTERPRETATIONS: LEFT VENTRICLE: Normal LV size; moderate concentric LVH; IVS measures 1.7 cm in end diastole. Normal wall motion and LV systolic function. EF is 60-65%. MITRAL VALVE: leaflets are normal; no regurgitation AORTIC VALVE: leaflets are normal; no regurgitation TRICUSPID VALVE: leaflets are normal; trace regurgitation PULMONIC VALVE: not seen CHAMBERS:normal chamber sizes GREAT VESSELS: Ascending aorta is 3.3 cm diameter. IMPRESSION: 1. Normal LV size; moderate concentric LVH; normal wall motion and LV systolic function. 2. No significant valvular abnormalities 3. Normal chamber sizes 4. No prior study available for comparison.
--- NOTE | 2016-07-08 18:59 | DIAGNOSTIC IMAGING REPORT ---
REFERRING PHYSICIAN/PROVIDER: Dr. Wong CONSULTING DEPUTY CHIEF MAGISTRATE: Natalia Chavez MD PROCEDURE: Echocardiogram TECHNICAL QUALITY: Fair; c/b patient being combative INDICATION: pulmonary and ventricular pressures. Needing a bubble study. RHYTHM DURING PROCEDURE: NSR INTERPRETATIONS: LEFT VENTRICLE: Normal LV size; moderate concentric LVH; IVS measures 1.7 cm in end diastole. Normal wall motion and LV systolic function. EF is 60-65%. MITRAL VALVE: leaflets are normal; no regurgitation AORTIC VALVE: leaflets are normal; no regurgitation TRICUSPID VALVE: leaflets are normal; trace regurgitation PULMONIC VALVE: not seen CHAMBERS:normal chamber sizes GREAT VESSELS: Ascending aorta is 3.3 cm diameter. IMPRESSION: 1. Normal LV size; moderate concentric LVH; normal wall motion and LV systolic function. 2. No significant valvular abnormalities 3. Normal chamber sizes 4. No prior study available for comparison.
[2016-07-09] VITALS (23 sets, daily range): BP systolic 112–151; BP diastolic 57–90
--- NOTE | 2016-07-09 06:19 | Progress Note ---
Subjective General Note Date: July 09, 2016 Admission Date: July 04, 2016 Hospital Day: 6 PCP: none Status: Inpatient, CCU Advanced Directive: FULL CODE Room: 301 Brief history 51-year-old white male with a significant past medical history of OBEY, COPD, who presented to [facility] emergency room on the day of admission secondary to complaints of shortness of breath, dyspnea and mental status changes. The [facility] ER evaluation was consistent with copd, pneumonia, hypoxia leading to respiratory failure with overlying COPD. Due to poor performance on Non invasive ventilation and respiratory distress, paitent was intubated / ventulated. For other history present illness, past medical history, family history, social history, review of systems, and admission physical examination please see the patient's history and physical examination and ER visit note in the patient's medical record. Subjective Patient intubated. Responds appropriately with stimuli when sedation decreased. Patient requests None Medications and Allergies Medications Current Medications Sig/Lakeisha Start time Last Medication Dose Route Stop Time Status Admin Midazolam HCl 25 MG TITRATE 07/08 1300 AC Sodium Chloride 50 ML IV Dextrose/Sodium 1,000 ML ASDIRECTED 07/07 2215 AC 07/08 Chloride IV 2145 Methylprednisolone 40 MG Q8HR 07/07 1745 AC 07/09 Sodium Succinate IV 0525 Piperacillin/ 50 ML Q6HR 07/07 1230 AC 07/09 Tazobactam/Dextrose IV 0524 Pantoprazole Sodium 40 MG 0600 07/07 0800 AC 07/09 IV 0525 Hydromorphone HCl 1 MG Q1H PRN 07/06 0230 AC 07/09 IV 0355 Acetaminophen 650 MG Q4H PRN 07/05 2300 AC 07/06 [place] 0511 Furosemide 20 MG DIUB 07/06 1999 AC 07/09 IV 0525 Albuterol/Ipratropium 3 ML RTQ4H 07/05 1200 AC 07/09 IN 0306 Metoprolol Tartrate 2.5 MG Q6HR 07/05 1200 AC 07/09 IV 0525 Enoxaparin Sodium 40 MG QAM 07/05 0900 AC 07/08 SC 1002 Propofol See Dose TITRATE 07/05 0745 AC 07/09 Insts (1) IV 0524 Fluticasone/ See Dose RTBID 07/05 1999 AC 07/05 Salmeterol Insts (2) IN 1139 Oxycodone/ See Dose Q6H PRN 07/04 1845 AC Acetaminophen Insts (3) PO Albuterol/Ipratropium 3 ML Q6H PRN 07/04 1415 AC 07/05 IN 1156 Docusate Sodium 250 MG BID PRN 07/04 1415 AC PO Ketorolac 30 MG Q6H PRN 07/04 1415 AC Tromethamine IV 07/09 1414 Ondansetron HCl 4 MG Q6H PRN 07/04 1415 AC IV Dose Instructions: (1)Propofol: TITRATE FOR SEDATION (2)Fluticasone/Salmeterol: 1 CLICK (3)Oxycodone/Acetaminophen: 1 - 2 TABLETS Allergies Coded Allergies: Clarithromycin (Severe, GI BLEED 07/04/16) Physical Exam Vital Signs / I&Os Vital Signs Date Time Temp Pulse Resp B/P Pulse O2 O2 Flow FiO2 Ox Delivery Rate 07/09 0515 97.9 64 30 120/62 91 Ventilator 95 07/09 0454 0.0 07/09 0423 99.0 72 30 124/60 91 Ventilator 95 07/09 0318 98.2 73 30 125/72 91 Ventilator 95 07/09 0307 0.0 07/09 0227 97.9 63 30 127/67 89 Ventilator 95 07/09 0143 0.0 / 0122 97.7 67 30 127/76 89 Ventilator 95 05/ 0013 97.9 66 30 121/75 89 Ventilator 95 / 2338 0.0 / 2318 97.9 64 30 126/47 88 Ventilator 95 05/ 2224 97.9 68 30 123/67 88 Ventilator 90 05/ 2130 0.0 / 2121 79 30 145/81 89 Ventilator 100 05/12 2015 77 30 176/108 90 Ventilator 100 05/12 1999 Ventilator 90 05/12 1919 72 30 119/75 94 Ventilator 100 05/ 1908 0.0 05/ 1853 98.1 63 30 134/82 91 Ventilator 100 05/12 1700 67 30 128/62 89 Ventilator 100 05/12 1600 73 30 118/59 93 Ventilator 100 05/12 1522 81 28 05/12 1515 72 30 154/61 93 Ventilator 100 05/ 1411 97.3 05/ 1410 59 35 125/73 88 Ventilator 0.0 05/ 1329 59 91 Ventilator 0.0 05/12 1210 61 125/75 92 Ventilator 0.0 07/08 1115 63 35 130/72 91 Ventilator 0.0 07/08 1012 141/80 07/08 1007 98.8 70 36 90 Ventilator 0.0 07/08 0900 Ventilator 07/08 0803 77 36 143/77 83 Ventilator 0.0 07/08 0700 74 36 128/67 87 Ventilator 0.0 07/08 0638 36 I&O 07/09 0000 07/08 1600 07/08 0800 Intake Total 1854 0 2279 Output Total 1035 1070 2390 Balance 819 -1070 -111 General Appearance Patient intubated. Appropriate response with decreased sedation Lungs Decreased breath sounds with symmetric breath sounds present Basilar rales present. Cardiovascular Regular rate and rhythm, Normal S1 and S2 Abdomen Normal bowel sounds, Soft, obesity impairs examination Extremities No cyanosis, No clubbing, mild lower extremity edema unchanged LAB Results Laboratory Tests 07/09 0425 Chemistry Plasma Sodium Pending Plasma Potassium Pending Plasma Chloride Pending CO2 (Enzymatic) Pending BUN Pending Creatinine Pending Est GFR ( Amer) Pending Est GFR (Non-Af Amer) Pending Glucose Pending Plasma Calcium Pending Total Bilirubin Pending AST Pending ALT Pending Alkaline Phosphatase Pending Total Protein Pending Albumin Pending Hematology WBC (4.5 - 11.5 K/uL) 15.8 RBC (4.50 - 5.90 M/uL) 3.85 Hgb (13.5 - 17.5 gm/dL) 12.4 Hct (41.0 - 53.0 %) 36.8 MCV (80 - 100 fL) 96 MCH (26 - 34 pg) 32 RDW (11.6 - 14.8 %) 15.7 Neut % (Auto) (50 - 75 %) Pending Lymph % (Auto) (25 - 40 %) Pending [place] % (Auto) (3 - 14 %) Pending Band Neutrophils % (0 - 8 %) Pending Plt Count, EDTA (150 - 400 K/uL) 272 PUBS MCHC (31 - 37 g/dL) 34 Imaging Chest X-Ray IMPRESSION: 1. Stable left PICC line, ET and NG tubes 2. No change in the dense retrocardiac consolidation consistent with atelectasis versus pneumonia 3. Cardiomegaly Dictated by: GRABIEL ZALDIVAR MD D: CONSTANTINE;07/09/16 1044 Assessment and Plan Problem List 1. Respiratory failure Plan -Persistent requirement for mechanical ventilation -Patient has persistent high O2 requirements, able to 80% FiO2 today -Continue pulmonary recruitment maneuvers -Continue with present ventilator settings 2. COPD (chronic obstructive pulmonary disease) Plan -See above -DuoNeb, corticosteroids -Mechanical ventilation as required 3. Pneumonia Status Acute Onset Date Unknown Plan -Chest x-ray stable -Continue present antimicrobial therapy -Sputum shows no significant growth at this time other than scant growth of Belkys albicans. Most likely colonization we'll monitor with consideration of antifungals as necessary 4. Hypernatremia Status Acute Onset Date Unknown Plan -Resolved 5. Hyperglycemia Status Acute Onset Date Unknown Plan -Mild elevation -Most likely secondary to stress, corticosteroids -Insulin sliding scale 6. Hypokalemia Status Acute Onset Date Unknown Plan -Resolved -Monitor 7. CHF (congestive heart failure) Plan -No findings of CHF at this time -Echocardiogram shows normal left ventricular function Current status: Critical, unstable Anticipated discharge date: Anticipated discharge 5-7 days Anticipated discharge placement: Home Patient care time: Time spent in chart review, patient interview, physical exam, CPOE, and care documentation: 35 minutes Visit to patient today: 2 Complexity of care: High E&M Codes Rounding: Inpt-High/[id number]
--- NOTE | 2016-07-09 10:46 | DIAGNOSTIC IMAGING REPORT ---
PROCEDURE: XR CHEST 1 VIEW INDICATION: intubated, copd TECHNIQUE: Portable AP view 09:10 a.m. COMPARISON: Chest x-ray 07/08/2016. FINDINGS: Left PICC line, ET and NG tubes remain in satisfactory position. No change in the retrocardiac dense consolidation and minor right basilar parenchymal changes. Stable elevated right hemidiaphragm. Mild cardiomegaly with normal pulmonary vascularity. Thorax is normal. IMPRESSION: 1. Stable left PICC line, ET and NG tubes 2. No change in the dense retrocardiac consolidation consistent with atelectasis versus pneumonia 3. Cardiomegaly
[2016-07-10] VITALS (16 sets, daily range): BP systolic 103–153; BP diastolic 60–96
--- NOTE | 2016-07-10 05:53 | DIAGNOSTIC IMAGING REPORT ---
PROCEDURE: XR CHEST 1 VIEW INDICATION: Intubation. COPD. TECHNIQUE: Portable AP view (0545 hours). COMPARISON: Compared to chest x-ray on 07/09/2016 and 07/08/2016. FINDINGS: ET, NG tubes, a left PIC line are in satisfactory position. Allowing for suboptimal inspiration, there is mild improvement in left basilar atelectasis. Right lung is clear. Heart and mediastinum are normal. Thorax is normal. IMPRESSION: 1. Mild improvement with resolving left basilar atelectasis/consolidation.
--- NOTE | 2016-07-10 08:14 | Progress Note ---
Subjective General Note Date: July 10, 2016 Admission Date: July 04, 2016 Hospital Day: 7 PCP: none Status: Inpatient, CCU Advanced Directive: FULL CODE Room: 301 Brief history 51-year-old white male with a significant past medical history of OBEY, COPD, who presented to [facility] emergency room on the day of admission secondary to complaints of shortness of breath, dyspnea and mental status changes. The [facility] ER evaluation was consistent with copd, pneumonia, hypoxia leading to respiratory failure with overlying COPD. Due to poor performance on Non invasive ventilation and respiratory distress, paitent was intubated / ventulated. For other history present illness, past medical history, family history, social history, review of systems, and admission physical examination please see the patient's history and physical examination and ER visit note in the patient's medical record. Subjective The patient remains intubated at this time. Appropriate response when sedation is lightened. Patient requests None Medications and Allergies Medications Current Medications Sig/Lakeisha Start time Last Medication Dose Route Stop Time Status Admin Insulin Human Lispro See Dose Q6HR 07/09 1800 AC 07/10 Insts (1) SC 0610 Midazolam HCl 25 MG TITRATE 07/08 1300 AC Sodium Chloride 50 ML IV Dextrose/Sodium 1,000 ML ASDIRECTED 07/07 2215 AC 07/10 Chloride IV 0149 Methylprednisolone 40 MG Q8HR 07/07 1745 AC 07/10 Sodium Succinate IV 0610 Piperacillin/ 50 ML Q6HR 07/07 1230 AC 07/10 Tazobactam/Dextrose IV 0610 Pantoprazole Sodium 40 MG 0600 07/07 0800 AC 07/10 IV 0610 Hydromorphone HCl 1 MG Q1H PRN 07/06 0230 AC 07/10 IV 0445 Acetaminophen 650 MG Q4H PRN 07/05 2300 AC 07/06 SD 0511 Furosemide 20 MG DIUB 07/05 2000 AC 07/10 IV 0609 Albuterol/Ipratropium 3 ML RTQ4H 07/05 1200 AC 07/10 IN 0744 Metoprolol Tartrate 2.5 MG Q6HR 07/05 1200 AC 07/09 IV 0525 Enoxaparin Sodium 40 MG QAM 07/05 0900 AC 07/09 SC 0922 Propofol See Dose TITRATE 07/05 0745 AC 07/10 Insts (2) IV 0650 Fluticasone/ See Dose RTBID 07/05 1999 AC 07/05 Salmeterol Insts (3) IN 1139 Oxycodone/ See Dose Q6H PRN 07/04 1845 AC Acetaminophen Insts (4) PO Albuterol/Ipratropium 3 ML Q6H PRN 07/04 1415 AC 07/05 IN 1156 Docusate Sodium 250 MG BID PRN 07/04 1415 AC PO Ondansetron HCl 4 MG Q6H PRN 07/04 1415 AC IV Dose Instructions: (1)Insulin Human Lispro: LOW DOSE SLIDING SCALE (2)Propofol: TITRATE FOR SEDATION (3)Fluticasone/Salmeterol: 1 CLICK (4)Oxycodone/Acetaminophen: 1 - 2 TABLETS Allergies Coded Allergies: Clarithromycin (Severe, GI BLEED 07/04/16) Physical Exam Vital Signs / I&Os Vital Signs Date Time Temp Pulse Resp B/P Pulse O2 O2 Flow FiO2 Ox Delivery Rate 07/10 0714 60 30 116/68 91 Ventilator 100 07/10 0614 97.9 63 30 119/67 91 Ventilator 100 07/10 0527 98.1 61 30 122/69 93 Ventilator 100 07/10 0501 98.1 07/10 0456 0.0 07/10 0410 97.9 66 30 125/69 93 Ventilator 100 07/10 0313 97.9 57 30 120/72 93 Ventilator 100 07/10 0215 97.9 54 30 120/87 92 Ventilator 100 07/10 0129 0.0 07/10 0112 97.2 53 30 113/67 92 Ventilator 100 07/10 0009 97.3 54 30 118/72 92 Ventilator 100 07/09 2316 97.7 55 24 116/67 95 Ventilator 100 07/09 2312 0.0 / 2210 57 30 115/65 94 Ventilator 100 05/ 2125 59 30 112/63 92 Ventilator 0.0 /8 0.0 07/10 2003 97.2 61 30 112/62 92 Ventilator 0.0 07/09 1950 Ventilator 0.0 / 192 97.2 62 30 121/60 92 Ventilator 0.0 / 1853 0.0 / 1828 61 30 124/57 91 Ventilator 0.0 / 1732 63 30 125/66 90 Ventilator 0.0 05/ 1618 74 30 151/86 92 Ventilator 0.0 07/09 1516 100 07/09 1500 69 20 135/84 96 Ventilator 0.0 07/09 1405 97.5 68 30 125/74 91 Ventilator 100 07/09 1319 Ventilator 80 07/09 1318 76 30 147/90 85 Ventilator 95 07/09 1150 97.5 Ventilator 70 07/09 1148 59 30 139/71 89 Ventilator 0.0 07/09 1036 61 30 128/70 88 Ventilator 95 07/09 0915 71 30 133/71 92 Ventilator 95 07/09 0900 Ventilator 07/09 0823 62 30 116/57 89 Ventilator 0.0 I&O 07/10 0000 07/09 1600 07/09 0800 Intake Total 2154 473 1723 Output Total 1115 1210 2400 Balance 8065 -870 -664 General Appearance Patient intubated, appropriate response with light sedation Lungs Breath sounds equal, right basilar bronchial breath sounds present Cardiovascular Regular rate and rhythm, Normal S1 and S2 Abdomen Normal bowel sounds, pendulous, obesity impairs examination Extremities No cyanosis, No clubbing, 1+ edema bilateral lower extremities Neurological Cranial nerves intact, No lateralizing signs Psych/Mental Status patient intubated, sedated LAB Results Laboratory Tests 07/10 07/10 07/10 0600 0400 0400 Blood Gas Sample Site RR Total CO2 (24.0 - 30.0 mmol/L) 40.6 ABG pH (7.35 - 7.45) 7.40 ABG pCO2 at Pt Temp (35 - 45 mmHg) 62.6 ABG pO2 at Pt Temp (80.0 - 100.0 mmHg) 69.0 ABG HCO3 (20.0 - 26.0 mmol/L) 38.7 ABG O2 Sat Calc/Sandeep (95.1 - 100.0 %) 92.9 ABG Base Excess (-6.0 - -6.0 mmol/L) 12.3 ABG Reduced Hgb (%) 7.0 ABG Carboxyhemoglobin (0.5 - 1.5 %) 1.2 ABG Methemoglobin (0.4 - 1.5 %) 0.3 Shalom Test YES Other Total Hgb (14.0 - 18.0 g/dL) 12.7 A-a O2 Gradient (7.0 - 14.0 mmHg) 576.3 Hgb O2 Saturation (95.0 - 100.0 %) 91.5 Respiration Rate (/MIN) 30 Vent Mode SIMV FiO2 (20 - 101 %) 100 Tidal Volume (cc) 310 PEEP (cmH2O) 16 Pressure Support (cmH2O) 10 Chemistry Plasma Sodium (136 - 145 mmol/L) 145 Plasma Potassium (3.5 - 5.1 mmol/L) 3.2 Plasma Chloride (98 - 107 mmol/L) 104 CO2 (Enzymatic) (21 - 32 mmol/L) 36 BUN (7 - 18 mg/dL) 22 Creatinine (0.6 - 1.3 mg/dL) 0.8 Est GFR ( Amer) (mL/min) >60 Est GFR (Non-Af Amer) (mL/min) >60 Glucose (70 - 110 mg/dL) 178 Plasma Calcium (8.5 - 10.1 mg/dL) 8.8 Procalcitonin (0 - 0.5 ng/mL) <0.5 Hematology WBC (4.5 - 11.5 K/uL) 13.3 RBC (4.50 - 5.90 M/uL) 4.10 Hgb (13.5 - 17.5 gm/dL) 12.6 Hct (41.0 - 53.0 %) 39.0 MCV (80 - 100 fL) 95 MCH (26 - 34 pg) 31 RDW (11.6 - 14.8 %) 15.7 Neut % (Auto) (50 - 75 %) 84 Lymph % (Auto) (25 - 40 %) 7 [place] % (Auto) (3 - 14 %) 1 Eos % (Auto) (0 - 4 %) 0 Baso % (Auto) (0 - 2 %) 1 Band Neutrophils % (0 - 8 %) 7 Metamyelocytes % (0 - 1 %) 0 Myelocytes (0 - 1 %) 0 Other Cell Type 0 Plt Count, EDTA (150 - 400 K/uL) 309 Hypochromic-Microcytic 1+ Anisocytosis (manual) 1+ PUBS MCHC (31 - 37 g/dL) 32 Imaging Chest x-ray IMPRESSION: 1. Mild improvement with resolving left basilar atelectasis/consolidation. Dictated by: TIN BLANKENSHIP MD D: ANGÉLICA;07/10/16 0553 Assessment and Plan Problem List 1. Respiratory failure Plan -Patient with findings of respiratory failure requiring intubation/mechanical ventilation -Persistent hypoxemia requiring high FiO2/PEEP -Attempts at pulmonary recruitment minimally successful -Case discussed with [facility] pulmonary medicine/ICU attending-we will transferred for pulmonary consultation higher level of care. -Patient's is in agreement with transfer given informed consent. -Dr. Mejia to complete [place] and transfer plans/documentation 2. COPD (chronic obstructive pulmonary disease) Plan -See above -DuoNeb/corticosteroids/intubations-mechanical ventilation 3. Obstructive sleep apnea Plan -Outpatient follow-up with pulmonary medicine 4. Pneumonia Status Acute Onset Date Unknown Plan -Stable, patient afebrile -Chest x-ray stable -Sputum C&S only scant growth yeast. Rocephin/Zosyn 5. Hypernatremia Status Acute Onset Date Unknown Plan -Resolved -Sodium 145 6. Hyperglycemia Status Acute Onset Date Unknown Plan -Blood glucose elevated -Insulin sliding scale 7. Hypokalemia Status Acute Onset Date Unknown Plan -Mild -IV supplementation -Potassium 3.2 Current status: Critical, unstable Anticipated discharge date: Today, transferred to [facility] ICU Anticipated discharge placement: [facility] Patient care time: Time spent in chart review, patient interview, physical exam, CPOE, and care documentation: 35 minutes Visit to patient today: 3 Complexity of care: High E&M Codes Rounding: Inpt-High/[id number]
--- NOTE | 2016-07-10 16:38 | Provider's Discharge Care Plan ---
Problem, Goal, Plan Problem List 1. Respiratory failure Goals: respiratory support; Transfer of care to [facility] for advanced care guidelines Instructions: advance care guidelines to be carried out through [facility] ICU. 2. Hypoxia Goals: hypoxia, lack of good oxygenation of lung tissue related to disease process. Needing further advancement of care. Transfer to [facility] ICU Instructions: plans for transfer to [facility] 3. COPD (chronic obstructive pulmonary disease) Goals: Improve disease control, Improve function Instructions: stabilize airway; advancement of therapeutics of therapeutics 4. Obstructive sleep apnea Goals: obstructive airway disease, most consistent with obstructive sleep apnea. Transferring care,. Instructions: therapeutics directed At the cause 5. Pneumonia Goals: Improve disease control, Therapeutic intervention Instructions: transfer of care for Follow-up 6. CHF (congestive heart failure) Goals: Improve disease control Instructions: Take meds as directed
--- NOTE | 2016-07-10 16:38 | Provider's Discharge Care Plan ---
Problem, Goal, Plan Problem List 1. Respiratory failure Goals: respiratory support; Transfer of care to [facility] for advanced care guidelines Instructions: advance care guidelines to be carried out through [facility] ICU. 2. Hypoxia Goals: hypoxia, lack of good oxygenation of lung tissue related to disease process. Needing further advancement of care. Transfer to [facility] ICU Instructions: plans for transfer to [facility] 3. COPD (chronic obstructive pulmonary disease) Goals: Improve disease control, Improve function Instructions: stabilize airway; advancement of therapeutics of therapeutics 4. Obstructive sleep apnea Goals: obstructive airway disease, most consistent with obstructive sleep apnea. Transferring care,. Instructions: therapeutics directed At the cause 5. Pneumonia Goals: Improve disease control, Therapeutic intervention Instructions: transfer of care for Follow-up 6. CHF (congestive heart failure) Goals: Improve disease control Instructions: Take meds as directed
--- NOTE | 2016-07-10 17:19 | Discharge Summary ---
Discharge Summary Report Admit Date 07/05/16 Discharge Date 07/10/16 Admission Diagnosis 1. Respiratory failure. 2. Hypoxia. 3. COPD 4. Obstructive sleep apnea. 5. CHF. 6. Dyspnea Discharge Diagnosis 1. Respiratory failure. 2. Hypoxia. 3. COPD 4. Obstructive sleep apnea. 5. CHF. 6. Dyspnea Brief History See HPI 07/04/2016. 51-year-old male with chronic history of obesity, sleep apnea, COPD, CHF, who was in respiratory failure on admission. Patient had been seen at [facility] week prior with progressive state of hypoxia and respiratory distress. Patient was found to be hypoxic on room air on admission. Patient had workup partial for his sleep apnea in the past. He was in the works. Patient received a CPAP with fitting fitting. Due to the progressive nature of his illness. He was admitted to the ICU. Patient transferred. Hospital Course Admission through the emergency department; [facility] ED. Patient was found to be Hypoxic on room air. Encourage patient to continue on O2. On initial evaluation, patient's chest x-ray was consistent with a retro-cardiac infiltrate. Patient started the IV Rocephin and Zosyn. CT of the abdomen showed mild atelectatic changes on the right side. Patient with profound obesity; pickwickian-like features. This all is in the setting of obstructive sleep apnea. Patient's initial blood gases showed a pH of 0.25, CO2 105, PO2 50. During the night Patient became disturbed removed all this CPAP appliance and IV. Patient was discharged, but re-admitted under CCU status due the airway needs. Blood gas was done with a pH 7.03, PCO2 not reading and O2 130. Patient 's airway was taken. Patient started on ventilation. Initial ventilatory settings included a 500 tidal volume, plus rate of 12 and PEEP of 10. Patient, however, had challenges even on ventilation to keep saturations above 92%. Patient was sedated appropriately on percent and propofol. Improved with Ph headed towards normal on subsequent values. Patient had a second blood gas showing pH of 7.25,, PO2 52, PO2. Patient had chronic hypoxemia with the ventilation. Patient was placed on tigher sedation; propofol and Versed. Patient remained sedatred . Attempting to titrate O2 sats; without success. He is intermittently tachycardic Patient was found to have atelectasis. Ventilator settings were advanced to accommodate for early signs of ARDS.: Discuss radio television technical director on staff, reviewed the labs. Approach to care with the pulmonology [place] on day hospitalization. Attempted, paralytics, however formulation was limited. Patient was placed on 24 hour and on positional changes. Also changed positions often unable to place patient in a prone position. He made some improvement, with minimal complaints. Patient has a document in [facility]. Care has been maximized and resources exhausted in the small facility. Discussed the transfer of care to Dr. Jarvis at the [place]. He is willing to accept. Discussed the care that is available. Patient will need to be sedated on an Route. General Appearance sedated, ventilated HEENT ET tube in place Lungs ventilated Cardiovascular Normal S1, Normal S2, No murmurs Abdomen Soft Skin No Rashes Lab/Imaging Laboratory Tests 07/10 07/10 07/10 0400 0400 0600 Blood Gas Sample Site RR Total CO2 (24.0 - 30.0 mmol/L) 40.6 ABG pH (7.35 - 7.45) 7.40 ABG pCO2 at Pt Temp (35 - 45 mmHg) 62.6 ABG pO2 at Pt Temp (80.0 - 100.0 mmHg) 69.0 ABG HCO3 (20.0 - 26.0 mmol/L) 38.7 ABG O2 Sat Calc/Sandeep (95.1 - 100.0 %) 92.9 ABG Base Excess (-6.0 - -6.0 mmol/L) 12.3 ABG Reduced Hgb (%) 7.0 ABG Carboxyhemoglobin (0.5 - 1.5 %) 1.2 ABG Methemoglobin (0.4 - 1.5 %) 0.3 Shalom Test YES Other Total Hgb (14.0 - 18.0 g/dL) 12.7 A-a O2 Gradient (7.0 - 14.0 mmHg) 576.3 Hgb O2 Saturation (95.0 - 100.0 %) 91.5 Respiration Rate (/MIN) 30 Vent Mode SIMV FiO2 (20 - 101 %) 100 Tidal Volume (cc) 310 PEEP (cmH2O) 16 Pressure Support (cmH2O) 10 Chemistry Plasma Sodium (136 - 145 mmol/L) 145 Plasma Potassium (3.5 - 5.1 mmol/L) 3.2 Plasma Chloride (98 - 107 mmol/L) 104 CO2 (Enzymatic) (21 - 32 mmol/L) 36 BUN (7 - 18 mg/dL) 22 Creatinine (0.6 - 1.3 mg/dL) 0.8 Est GFR ( Amer) (mL/min) >60 Est GFR (Non-Af Amer) (mL/min) >60 Glucose (70 - 110 mg/dL) 178 Plasma Calcium (8.5 - 10.1 mg/dL) 8.8 Procalcitonin (0 - 0.5 ng/mL) <0.5 Hematology WBC (4.5 - 11.5 K/uL) 13.3 RBC (4.50 - 5.90 M/uL) 4.10 Hgb (13.5 - 17.5 gm/dL) 12.6 Hct (41.0 - 53.0 %) 39.0 MCV (80 - 100 fL) 95 MCH (26 - 34 pg) 31 RDW (11.6 - 14.8 %) 15.7 Neut % (Auto) (50 - 75 %) 84 Lymph % (Auto) (25 - 40 %) 7 [place] % (Auto) (3 - 14 %) 1 Eos % (Auto) (0 - 4 %) 0 Baso % (Auto) (0 - 2 %) 1 Band Neutrophils % (0 - 8 %) 7 Metamyelocytes % (0 - 1 %) 0 Myelocytes (0 - 1 %) 0 Other Cell Type 0 Plt Count, EDTA (150 - 400 K/uL) 309 Hypochromic-Microcytic 1+ Anisocytosis (manual) 1+ PUBS MCHC (31 - 37 g/dL) 32 Repeated chest x-ray from date of admission until today on transfer. Recent chest film showed improvement in the left basilar atelectatic consolidation. Discharge Instructions/Meds Patient is discharged to [place] for higher level of care. Intubated and ventilated with increased O2 requirements. Transferred to take advantage of resource. Patient once discharged from probably should have home medication schedule adjusted He will neeed see primary care provider soon as possible once discharged. Should try to limit sodium intake. Increase exercise tolerance. Stop smoking. Needing sleep study and ultimate Fitting for CPAP or BiPAP. Continue with the medication on hand. Albuterol 2 puffs 4 times a day. Carvedilol 3.125 mg by mouth twice a day. Furosemide 20 mg by mouth daily. Ipratropium, albuterol nebs 0.5/2.5 every 6 hours. Potassium chloride 10 mEq daily Also take medications prescribed through this inpatient. Follow-up with primary care Return to the ED or urgent care clinic with with worsening symptoms, chest pain, nonexertional. Nausea, vomiting, intractable.
== END 2016-07-10 17:30 | disposition short-term general hospital (02) | DRG 207 ==
LOC: ED SRH 09:55 → TRANS SRH 12:58 → CC SRH 15:52
PROVIDERS: ADMIT Emergency Medicine
PROC: 5A09357 Assistance with Respiratory Ventilation, Less than 24 Consecutive Hours, Continuous Positive Airway Pressure (ICD-10-PCS; 2016-07-04)
PROC: 5A1955Z Respiratory Ventilation, Greater than 96 Consecutive Hours (ICD-10-PCS; principal; 2016-07-05)
PROC: 0BH17EZ Insertion of Endotracheal Airway into Trachea, Via Natural or Artificial Opening (ICD-10-PCS; 2016-07-05)
PROC: 5A09357 Assistance with Respiratory Ventilation, Less than 24 Consecutive Hours, Continuous Positive Airway Pressure (ICD-10-PCS; 2016-07-05)
PROC: 02HV33Z Insertion of Infusion Device into Superior Vena Cava, Percutaneous Approach (ICD-10-PCS; 2016-07-08)
DX: J96.02 Acute respiratory failure with hypercapnia (principal); J96.01 Acute respiratory failure with hypoxia; J18.9 Pneumonia, unspecified organism; J44.0 Chronic obstructive pulmonary disease with (acute) lower respiratory infection; E66.2 Morbid (severe) obesity with alveolar hypoventilation; Z68.42 Body mass index [BMI] 45.0-49.9, adult; E87.0 Hyperosmolality and hypernatremia; G47.33 Obstructive sleep apnea (adult) (pediatric); I50.9 Heart failure, unspecified; E87.6 Hypokalemia
CPT/HCPCS: 81240; 83475; 83526; 83738; 85241; 90047; 90065; 90074; 90098; 90100; 90127; 90309; 90616; 91286; 91295; 91320; 91556; 92031; 92132; 92235; 92530; 92610; 92720; 92740; 93004; 93140; 95059; 95061